=== PATIENT | female | born 1955 | race Caucasian/White ===

== ENCOUNTER 2018-09-11 10:47 | Emergency (ER) | payer OTHER, MEDICAID, SELFPAY ==
[2018-09-11 10:53] VITALS: BP 167/89; PULSE 57; RESP 14; TEMP 36.7; O2SAT 97
--- NOTE | 2018-09-11 10:57 | DI.RAD.S_ITS ---
PROCEDURE: XR FOOT LT MIN 3V INDICATIONS: pain on dorsal aspect, radiates to 1st toe. TECHNIQUE: 3 views of the foot were acquired. COMPARISON: None. FINDINGS: Bones: No fractures or dislocations. No suspicious bony lesions. Soft tissues: No tibiotalar joint effusion. Achilles tendon appears normal. IMPRESSION: Normal for age, source of current foot pain symptoms is not seen. Dictated by: Stone Ulrich M.D. on 09/11/2018 at 11:20 Approved by: Stone Ulrich M.D. on 09/11/2018 at 11:20
--- NOTE | 2018-09-11 13:05 | ED.LOWEXIN ---
HPI - Extremity Injury (Lower) <ANGÉLICA Darnell Last Filed: 09/11/18 20:35> General Chief Complaint: Extremity Injury, Lower Stated Complaint: Lt foot may be broken Time Seen by Provider: 09/11/18 13:12 Source: patient Mode of arrival: ambulatory Limitations: no limitations History of Present Illness HPI Narrative: This 63-year-old female comes to ED secondary to twisting injury to the left foot 3 days ago. She states that she got her foot stuck in a box with large cans in it, and then rolled it awkwardly forward into the side. She states it hurts in the inside of the foot. She is able to walk on the outside of the foot with some tenderness, having difficulty driving her stick shift. She had increased pain with walking this morning despite no new trauma and thought she should have an x-ray. She denies any injury to the ankle or any other new pain. She did not actually fall. She has been taking Tylenol for pain which is helpful. Related Data Home Medications Medication Instructions Recorded Confirmed lisinopril 2.5 mg tablet 2.5 mg PO DAILY 07/09/17 01/20/18 metoprolol succinate ER 100 mg 100 mg PO DAILY 01/20/18 01/20/18 capsule sprinkle, ext. release 24 hr amiodarone 100 mg tablet 50 mg PO DAILY tab 08/11/18 08/11/18 Previous Rx's Medication Instructions Recorded furosemide 20 mg tablet See Rx Instructions .ROUTE 08/04/18 .COMPLEX #60 tab bupropion HCl SR 200 mg tablet,12 200 mg PO DAILY #30 tab 08/13/18 hr sustained-release fluoxetine 20 mg capsule 40 mg PO QDAY #180 cap 08/13/18 alprazolam 0.5 mg tablet 0.5 mg PO BID #60 tab 08/18/18 warfarin 5 mg tablet See Rx Instructions .ROUTE 08/18/18 .COMPLEX #90 tab Allergies Allergy/AdvReac Type Severity Reaction Status Date / Time No Known Drug Allergies Allergy Verified 09/11/18 10:57 Review of Systems <ANGÉLICA Darnell Last Filed: 09/11/18 20:35> Review of Systems ROS Unobtainable: All systems reviewed & are unremarkable except as noted in HPI and below PFSH <ANGÉLICA Darnell Filed: 09/11/18 20:35> Medical History Anxiety (Chronic) Atrial fibrillation (Chronic) CHF (congestive heart failure) (Chronic) Depression (Chronic) Social History Smoking Status: Former smoker Social History Smoking Status: Former smoker Exam <Hortensia Deutsch PA-C - Last Filed: 09/11/18 20:35> Narrative Exam Narrative: GENERAL APPEARANCE: Patient sitting comfortably, in no distress. LUNGS: Clear to auscultation bilaterally. HEART: Rate and rhythm regular without murmur, normal S1 and S2, no S3 or S4. MUSCULOSKELETAL: No L. foot/ankle effusion. Tender over the left foot mid to distal mid medial metatarsals. No TTP elsewhere over the foot, no TTP over the L. ankle. Normal dorsi and plantarflexion of L. foot toes. Full AROM of L. ankle without tenderness. NEUROVASCULAR: L. foot warm and pink with brisk cap refill, sensation grossly intact Initial Vital Signs Initial Vital Signs: Vital Signs Temperature 98.1 F 09/11/18 10:53 Pulse Rate 57 L 09/11/18 10:53 Respiratory Rate 14 09/11/18 10:53 Blood Pressure 167/89 H 09/11/18 10:53 Pulse Oximetry 97 09/11/18 10:53 <Leanna Palmer DO - Last Filed: 09/12/18 07:12> Initial Vital Signs Initial Vital Signs: Vital Signs Temperature 98.1 F 09/11/18 10:53 Pulse Rate 57 L 09/11/18 10:53 Respiratory Rate 14 09/11/18 10:53 Blood Pressure 167/89 H 09/11/18 10:53 Pulse Oximetry 97 09/11/18 10:53 Course <Hortensia Deutsch PA-C - Last Filed: 09/11/18 20:35> Orders Ordered: ED Orders 09/11/18 10:57 XR foot LT min 3V Stat Vital Signs - 8 hr 09/11/18 13:36 Pulse Rate 67 Respiratory Rate 20 Blood Pressure [Left Arm] 111/64 Pulse Oximetry 95 <DO Misael Muro Last Filed: 09/12/18 07:12> Orders Ordered: ED Orders 09/11/18 10:57 XR foot LT min 3V Stat Vital Signs - 8 hr 09/11/18 13:36 Pulse Rate 67 Respiratory Rate 20 Blood Pressure [Left Arm] 111/64 Pulse Oximetry 95 MDM - Extremity Injury (Lower) <Hortensia Deutsch PA-C - Last Filed: 09/11/18 20:35> Imaging Data foot: Radiologist's impression: [address] [address] XRay Report Signed Patient: Miladis Bond [facility]#: [id number] : 4Acct:[id number] Age/Sex: 63 / FDate of Service: 09/11/18 Loc: ED Accession Number: [id number] Procedure: XR foot LT min 3V Ordering Provider: Leanna Palmer D.O. PROCEDURE: XR FOOT LT MIN 3V INDICATIONS: pain on dorsal aspect, radiates to 1st toe. TECHNIQUE: 3 views of the foot were acquired. COMPARISON: None. FINDINGS: Bones: No fractures or dislocations. No suspicious bony lesions. Soft tissues: No tibiotalar joint effusion. Achilles tendon appears normal. IMPRESSION: Normal for age, source of current foot pain symptoms is not seen. Dictated by: Stone Ulrich M.D. on 09/11/2018 at 11:20 Approved by: Stone Ulrich M.D. on 09/11/2018 at 11:20 Discharge Plan Departure Patient Disposition: Home Clinical Impression: Foot sprain Qualifiers: Encounter type: initial encounter Laterality: left Qualified Code(s): S93.602A - Unspecified sprain of left foot, initial encounter Discharge Date/Time: 09/11/18 13:42 Interventions: ED Discharge Assessment Last Done: 09/11/18 13:42 Instructions: DI for Foot Sprain Activity Restrictions/Additional Instructions: There was no broken bone seen on your xray today so it is likely that you bruised and sprained it. Please take Tylenol Arthritis or 8 hour (extended release acetaminophen, 650mg per tab) every 8 hours to help with pain (you can add a 4th tab during the day as needed in addition). This may be easier for you to keep up with than your regular usual tylenol. Wear the orthopedic shoe for support. Follow up with your PCP if this is not improving over the next week as you may need repeat xrays if this is not getting better (you may need to continue wearing the shoe for up to 4-6 weeks) Prescriptions: No Action lisinopril 2.5 mg tablet 2.5 mg PO DAILY RF: 0 metoprolol succinate 100 mg cap,sprinkle,ER 24hr dose pack 100 mg PO DAILY RF: 0 amiodarone 100 mg tablet 50 mg PO DAILY RF: 0 furosemide [Lasix] 20 mg tablet See Rx Instructions .ROUTE .COMPLEX Qty: 60 RF: 0 fluoxetine 20 mg capsule 40 mg PO QDAY Qty: 180 RF: 0 bupropion HCl 200 mg tablet sustained-release 12 hr 200 mg PO DAILY Qty: 30 RF: 6 warfarin [Coumadin] 5 mg tablet See Rx Instructions .ROUTE .COMPLEX Qty: 90 RF: 0 alprazolam [Xanax] 0.5 mg tablet 0.5 mg PO BID Qty: 60 RF: 0 Referrals: Giulia García DO [Primary Care Provider] - <Leanna Palmer DO - Last Filed: 09/12/18 07:12> Cosign ED Attending Cossylwiaature Attestation: I was immediately available in the department for consultation. Documentation has been reviewed. I agree with assessment and plan.
[2018-09-11 13:36] VITALS: BP 111/64; PULSE 67; RESP 20; O2SAT 95
== END 2018-09-11 13:42 | disposition home or self-care (01) ==
PROVIDERS: Emergency Provider Internal Medicine; Family Provider Family Medicine; PCP Family Medicine
DX: S93.602A Unspecified sprain of left foot, initial encounter (principal); X50.1XXA Overexertion from prolonged static or awkward postures, initial encounter
CPT/HCPCS: 73630; 99282; 99283

== ENCOUNTER → 2018-11-17 14:32 | Outpatient (CLI) | payer OTHER, MEDICAID, SELFPAY ==
[2018-11-17 15:19] LABS: Add Manual Diff / Slide Review NO; Basophils Absolute Auto 0 /uL (0-100); Basophils Percent Auto 0.5 % (0-2); Eosinophils Absolute Auto 100 /uL (0-450); Eosinophils Percent Auto 1.5 % (2-4); Hematocrit 45.8 % (36-46); Hemoglobin 15.6 g/dL (12.0-16.0); Lymphocytes Absolute Auto 2900 /uL (1100-4500); Mean Corpuscular HGB Conc 34.2 % (30-36); Mean Corpuscular Hemoglobin 30.7 PG (26-34); Mean Corpuscular Volume 89.7 fL (80-100); Monocytes Absolute Auto 800 /uL (0-900); Monocytes Percent Auto 8.8 % (3-14); Neutrophils Absolute Auto 5500 /uL (1500-7000); Neutrophils Percent Auto 58.2 % (50-75); Platelet Count 289 X10^3/uL (150-400); Red Cell Distribution Width 13.1 % (11.6-14.8); White Blood Cell Count 9.4 X10^3/uL (4.5-11.0)
[2018-11-17 15:52] LABS: INR 1.8 (0.9-1.3); Prothrombin Time 21.6 SECONDS (10.1-12.7)
[2018-11-17 16:04] LABS: Alanine Aminotransferase 36 IU/L (9-52); Albumin 4.7 g/dL (3.5-5.0); Albumin Globulin Ratio 1.3 (1.0-2.8); Alkaline Phosphatase 90 U/L (38-126); Aspartate Aminotransferase 35 IU/L (14-36); BUN Creatinine Ratio 18.9 (6-22); Bilirubin Total 0.5 mg/dL (0.2-1.3); Blood Urea Nitrogen 17 mg/dL (7-17); Calcium 10.4 mg/dL (8.4-10.2); Carbon Dioxide 30 mmol/L (22-32); Chloride 99 mmol/L (98-107); Cholesterol 136 mg/dL (140-199); Estimated Glomerular Filt Rate > 60.0 mL/min (>60); Globulin 3.5 g/dL (1.7-4.1); Glucose 116 mg/dL (80-110); HDL Cholesterol 44 mg/dL (40-60); HEMOLYSIS < 15 (0-50); LDL Cholesterol Calculated 59 mg/dL (<100); Potassium 4.4 mmol/L (3.4-5.1); Sodium 142 mmol/L (137-145); Total Protein 8.2 g/dL (6.3-8.2); Triglycerides 165 mg/dL (35-150)
[2018-11-17 16:33] LABS: Thyroid Stimulating Hormone < 0.02 uIU/mL (0.47-4.68)
== END ==
PROVIDERS: Family Provider Family Medicine; PCP Family Medicine; Visit Provider Internal Medicine Cardiovascular Disease
DX: Z51.81 Encounter for therapeutic drug level monitoring (principal); Z79.899 Other long term (current) drug therapy; Z79.01 Long term (current) use of anticoagulants; I48.1 Persistent atrial fibrillation; I10 Essential (primary) hypertension; I48.91 Unspecified atrial fibrillation
CPT/HCPCS: 36415; 80053; 80061; 84443; 85025; 85610

== ENCOUNTER 2018-11-20 11:16 | Emergency (ER) | payer OTHER, MEDICAID, SELFPAY ==
[2018-11-20] VITALS (15 sets, daily range): BP systolic 60–134; BP diastolic 18–91; PULSE 22–110; RESP 12–21; TEMP 36.7; O2SAT 95–98; BMI 34.4
--- NOTE | 2018-11-20 11:29 | DI.RAD.S_ITS ---
PROCEDURE: XR CHEST 1V INDICATIONS: chest pain TECHNIQUE: One view of the chest was acquired. COMPARISON: [facility], , CHEST 2 VIEW, 01/08/2015, 18:13. FINDINGS: Surgical changes and devices: None. Lungs and pleura: Lungs are clear. No pleural effusions or pneumothorax. Mediastinum: Mediastinal contours appear normal. Mild cardiomegaly. Bones and chest wall: No suspicious bony lesions. Overlying soft tissues appear unremarkable. IMPRESSION: Mild cardiomegaly. No evidence acute pulmonary process. Dictated by: Damien Pollack M.D. on 11/20/2018 at 12:08 Approved by: Damien Pollack M.D. on 11/20/2018 at 12:08
[2018-11-20 11:46] LABS: Add Manual Diff / Slide Review NO; Basophils Absolute Auto 0 /uL (0-100); Basophils Percent Auto 0.6 % (0-2); Eosinophils Absolute Auto 100 /uL (0-450); Eosinophils Percent Auto 1.5 % (2-4); Hematocrit 45.8 % (36-46); Hemoglobin 15.2 g/dL (12.0-16.0); Lymphocytes Absolute Auto 2200 /uL (1100-4500); Lymphocytes Percent Auto 29.3 % (25-40); Mean Corpuscular HGB Conc 33.1 % (30-36); Mean Corpuscular Hemoglobin 30.1 PG (26-34); Monocytes Absolute Auto 900 /uL (0-900); Monocytes Percent Auto 12.5 % (3-14); Neutrophils Absolute Auto 4100 /uL (1500-7000); Neutrophils Percent Auto 56.1 % (50-75); Platelet Count 271 X10^3/uL (150-400); Red Blood Cell Count 5.04 X10^6/uL (4.0-5.2); Red Cell Distribution Width 13.3 % (11.6-14.8); White Blood Cell Count 7.3 X10^3/uL (4.5-11.0)
[2018-11-20 11:52] LABS: INR 1.8 (0.9-1.3); Prothrombin Time 21.1 SECONDS (10.1-12.7)
[2018-11-20 11:55] LABS: PTT Partial Thromboplastin Tim 44 SECONDS (26.4-36.2)
[2018-11-20 11:57] LABS: Alanine Aminotransferase 30 IU/L (9-52); Albumin 4.3 g/dL (3.5-5.0); Albumin Globulin Ratio 1.3 (1.0-2.8); Alkaline Phosphatase 82 U/L (38-126); Aspartate Aminotransferase 31 IU/L (14-36); BUN Creatinine Ratio 32.5 (6-22); Bilirubin Total 0.5 mg/dL (0.2-1.3); Blood Urea Nitrogen 26 mg/dL (7-17); Calcium 9.3 mg/dL (8.4-10.2); Carbon Dioxide 27 mmol/L (22-32); Chloride 103 mmol/L (98-107); Creatine Kinase 46 U/L (30-135); Estimated Glomerular Filt Rate > 60.0 mL/min (>60); Globulin 3.3 g/dL (1.7-4.1); Glucose 128 mg/dL (80-110); HEMOLYSIS 18 (0-50); Lipase 55 U/L (23-300); Potassium 4.2 mmol/L (3.4-5.1); Sodium 140 mmol/L (137-145); Total Protein 7.6 g/dL (6.3-8.2)
[2018-11-20 12:08] LABS: Troponin I < 0.012 ng/mL (0.01-0.034)
[2018-11-20] MEDS: SODIUM CHLORIDE 0.9% 1,000 ML 1000 ML IV (12:23)
--- NOTE | 2018-11-20 12:39 | ED.SYNCOPE ---
HPI - Syncope General Chief Complaint: Syncope Stated Complaint: LOC Time Seen by Provider: 11/20/18 12:27 Source: patient Mode of arrival: ambulatory Limitations: no limitations History of Present Illness HPI narrative: 63-year-old female comes to the emergency department with complaint of dizziness, patient states she has been dizzy for about a week. She was noted to be in AFib with her burglar alarm installer and patient told to come and get her INR checked today. On the way to hospital to get her INR checked she had to tree puller twice because she felt dizzy like she might pass out. When she was getting it checked with the nurse via fingerstick she did pass out for several seconds. The patient states that she did feel it coming on but then could hear people talking when it happened. She denies any headache, no chest pain or shortness of breath. She has noted that she has been in AFib when she checks her blood pressure at home on her monitor. But she does not feel any palpitations. Patient denies any nausea no vomiting no issues with bowel movements or urination, no swelling in her lower extremities. She states that she numbness or symptoms when she is seated, if she is walking or lying flat she does not really notice them. She did have a cardioversion [address] kasandra Ruiz, they increased her metoprolol and doubled it early this week. They have also been slowly decreasing her amiodarone over the last couple months. Patient states that she is supposed to be converted Eliquis but is currently on Coumadin. She has had a cardioversion before but no other cardiac interventions and no other prior surgeries. She was told that her thyroid was very low the other day she quit smoking 8 months ago, occasionally smokes THC denies illicit. She is quite stressed and anxious as her is currently in hospice and she is the primary caregiver has not been eating or drinking much regularly and on the run constantly. Related Data Home Medications Medication Instructions Recorded Confirmed lisinopril 2.5 mg tablet 2.5 mg PO QPM 07/09/17 11/20/18 amiodarone 100 mg tablet 50 mg PO DAILY tab 08/11/18 11/20/18 alprazolam [Xanax] 0.5 mg PO BID PRN 11/20/18 11/20/18 fluoxetine 40 mg PO DAILY 11/20/18 11/20/18 furosemide [Lasix] 20 mg PO DAILY 11/20/18 11/20/18 metoprolol succinate 100 mg PO BID 11/20/18 11/20/18 warfarin [Coumadin] 5 mg PO TUSA 11/20/18 11/20/18 warfarin [Coumadin] 7.5 mg PO SUMOWETHFR 11/20/18 11/20/18 Previous Rx's Medication Instructions Recorded bupropion HCl 200 mg tablet,12 hr 200 mg PO DAILY #30 tab 08/13/18 sustained-release Allergies Allergy/AdvReac Type Severity Reaction Status Date / Time No Known Drug Allergies Allergy Verified 09/11/18 10:57 Review of Systems Review of Systems ROS Unobtainable: All systems reviewed & are unremarkable except as noted in HPI and below PFSH Medical History (Updated 11/20/18 @ 18:27 by Elizabeth Lino DO) Anxiety (Chronic) Atrial fibrillation (Chronic) CHF (congestive heart failure) (Chronic) Depression (Chronic) History of cardioversion (Acute) Social History (Updated 11/20/18 @ 12:56 by Elizabeth Lino DO) Smoking Status: Former smoker substance use type: does not use Social History (Updated 11/20/18 @ 12:56 by Elizabeth Lino DO) Smoking Status: Former smoker substance use type: does not use Exam Narrative Exam Narrative: GENERAL: Alert and oriented x three, obese female in no acute distress. HEENT: Head normocephalic, atraumatic, EOMI, pupils reactive, face symmetric, moist mucous membranes NECK: Supple, full range of motion CARDIOVASCULAR: Irregularly irregular rate and rhythm without murmurs, rubs or gallops. No JVD. No swelling in lower extremities. RESPIRATORY: Breath sounds equal bilaterally, no wheezes rales or rhonchi. ABDOMEN: Soft, nontender. Normoactive bowel sounds all 4 quadrants. No guarding or rebound, rigidity, no mass, no pulsatile mass. : No CVA tenderness EXTREMITIES: Normal range of motion, no clubbing or edema. Neurovascularly intact NEUROLOGICAL: Cranial nerves II through XII grossly intact. Moving all extremities SKIN: Warm, dry, no petechiae, no rashes or lesions. Initial Vital Signs Initial Vital Signs: Vital Signs Temperature 98.0 F 11/20/18 11:17 Pulse Rate 75 11/20/18 11:17 Respiratory Rate 18 11/20/18 11:17 Blood Pressure 130/84 11/20/18 11:17 Pulse Oximetry 95 11/20/18 11:17 Course Orders Ordered: ED Orders 11/20/18 11:29 XR chest 1V Stat EKG-12 Lead Stat 11/20/18 11:32 Complete Blood Count AUTO DIFF Stat Comprehensive Metabolic Panel Stat Free T4 Free Thyroxine Stat Lipase Stat Magnesium Stat Partial Thromboplastin Time Stat Prothrombin Time INR Stat Troponin & CK Cardiac Panel Stat 11/20/18 13:22 EKG-12 Lead Stat Sodium Chloride (Normal Saline 0.9%) 1,000 mls @ 200 mls/hr IV BOLUS ONE Stop: 11/20/18 18:32 Last Admin: 11/20/18 14:00 Dose: 200 mls/hr Documented by: LORENZO Discontinued Medications Sodium Chloride (Normal Saline 0.9%) 1,000 mls @ 1,000 mls/hr IV BOLUS ONE Stop: 11/20/18 13:07 Last Infusion: 11/20/18 13:33 Dose: 0 mls/hr Documented by: Admin: 11/20/18 12:23 Dose: 1,000 mls/hr Documented by: LORENZO Vital Signs Vital signs: Vital Signs - 8 hr 11/20/18 11:17 11/20/18 11:56 11/20/18 12:09 Temperature 98.0 F Pulse Rate 75 110 H Pulse Rate [Orthostatic Lying] 102 H Pulse Rate [Orthostatic Sitting] 108 H Pulse Rate [Orthostatic Standing] 91 H Respiratory Rate 18 20 Blood Pressure 130/84 Blood Pressure [Left Arm] 110/72 Blood Pressure [Orthostatic Lying] 119/51 L Blood Pressure [Orthostatic Sitting] 120/82 Blood Pressure [Orthostatic Standing] 92/52 L Pulse Oximetry 95 98 11/20/18 12:30 11/20/18 13:00 11/20/18 13:10 Temperature Pulse Rate 91 H 102 H 92 H Pulse Rate [Orthostatic Lying] Pulse Rate [Orthostatic Sitting] Pulse Rate [Orthostatic Standing] Respiratory Rate 15 15 18 Blood Pressure Blood Pressure [Left Arm] 102/62 102/71 102/71 Blood Pressure [Orthostatic Lying] Blood Pressure [Orthostatic Sitting] Blood Pressure [Orthostatic Standing] Pulse Oximetry 95 95 98 11/20/18 13:15 11/20/18 13:20 11/20/18 13:30 Temperature Pulse Rate 22 L 50 L 108 H Pulse Rate [Orthostatic Lying] Pulse Rate [Orthostatic Sitting] Pulse Rate [Orthostatic Standing] Respiratory Rate 12 18 14 Blood Pressure Blood Pressure [Left Arm] 60/18 L 98/45 L 129/70 Blood Pressure [Orthostatic Lying] Blood Pressure [Orthostatic Sitting] Blood Pressure [Orthostatic Standing] Pulse Oximetry 97 97 97 11/20/18 13:45 11/20/18 14:00 11/20/18 14:15 Temperature Pulse Rate 108 H 108 H 108 H Pulse Rate [Orthostatic Lying] Pulse Rate [Orthostatic Sitting] Pulse Rate [Orthostatic Standing] Respiratory Rate 14 18 18 Blood Pressure Blood Pressure [Left Arm] 128/91 H 123/85 122/52 L Blood Pressure [Orthostatic Lying] Blood Pressure [Orthostatic Sitting] Blood Pressure [Orthostatic Standing] Pulse Oximetry 11/20/18 16:02 Temperature Pulse Rate 98 H Pulse Rate [Orthostatic Lying] Pulse Rate [Orthostatic Sitting] Pulse Rate [Orthostatic Standing] Respiratory Rate 21 Blood Pressure Blood Pressure [Left Arm] 114/62 Blood Pressure [Orthostatic Lying] Blood Pressure [Orthostatic Sitting] Blood Pressure [Orthostatic Standing] Pulse Oximetry 98 MDM - Syncope Lab Data Attestation: I reviewed the patient's lab results. Result diagrams: 11/20/18 11:32 11/20/18 11:32 Labs: Lab Results 11/20/18 11/20/18 11/20/18 Range/Units 11:32 11:32 11:32 WBC 7.3 (4.5-11.0) X10^3/uL RBC 5.04 (4.0-5.2) X10^6/uL Hgb 15.2 (12.0-16.0) g/dL Hct 45.8 (36-46) % MCV 91.0 (80-100) fL MCH 30.1 (26-34) PG MCHC 33.1 (30-36) % RDW 13.3 (11.6-14.8) % Plt Count 271 (150-400) X10^3/uL Neut % (Auto) 56.1 (50-75) % Lymph % (Auto) 29.3 (25-40) % Starr % (Auto) 12.5 (3-14) % Eos % (Auto) 1.5 L (2-4) % Baso % (Auto) 0.6 (0-2) % Neut # (Auto) 4100 (0807-2184) /uL Lymph # (Auto) 2200 (7561-9029) /uL Starr # (Auto) 900 (0-900) /uL Eos # (Auto) 100 (0-450) /uL Baso # (Auto) 0 (0-100) /uL PT 21.1 H (10.1-12.7) SECONDS INR 1.8 H (0.9-1.3) APTT 44 H (26.4-36.2) SECONDS Sodium 140 (137-145) mmol/L Potassium 4.2 (3.4-5.1) mmol/L Chloride 103 (98-107) mmol/L Carbon Dioxide 27 (22-32) mmol/L BUN 26 H (7-17) mg/dL Creatinine 0.80 (0.52-1.04) mg/dL Estimated GFR > 60.0 (>60) mL/min BUN/Creatinine Ratio 32.5 H (6-22) Glucose 128 H (80-110) mg/dL Calcium 9.3 (8.4-10.2) mg/dL Magnesium (1.6-2.3) mg/dL Total Bilirubin 0.5 (0.2-1.3) mg/dL AST 31 (14-36) IU/L ALT 30 (9-52) IU/L Alkaline Phosphatase 82 (38-126) U/L Total Creatine Kinase 46 (30-135) U/L CK-MB (CK-2) TNP CK-MB (CK-2) Rel Index TNP Troponin I < 0.012 (0.01-0.034) ng/mL Total Protein 7.6 (6.3-8.2) g/dL Albumin 4.3 (3.5-5.0) g/dL Globulin 3.3 (1.7-4.1) g/dL Albumin/Globulin Ratio 1.3 (1.0-2.8) Lipase 55 (23-300) U/L Free T4 (0.78-2.19) ng/dL 11/20/18 11/20/18 Range/Units 11:32 11:32 WBC (4.5-11.0) X10^3/uL RBC (4.0-5.2) X10^6/uL Hgb (12.0-16.0) g/dL Hct (36-46) % MCV (80-100) fL MCH (26-34) PG MCHC (30-36) % RDW (11.6-14.8) % Plt Count (150-400) X10^3/uL Neut % (Auto) (50-75) % Lymph % (Auto) (25-40) % Starr % (Auto) (3-14) % Eos % (Auto) (2-4) % Baso % (Auto) (0-2) % Neut # (Auto) (5726-6457) /uL Lymph # (Auto) (3476-3085) /uL Starr # (Auto) (0-900) /uL Eos # (Auto) (0-450) /uL Baso # (Auto) (0-100) /uL PT (10.1-12.7) SECONDS INR (0.9-1.3) APTT (26.4-36.2) SECONDS Sodium (137-145) mmol/L Potassium (3.4-5.1) mmol/L Chloride (98-107) mmol/L Carbon Dioxide (22-32) mmol/L BUN (7-17) mg/dL Creatinine (0.52-1.04) mg/dL Estimated GFR (>60) mL/min BUN/Creatinine Ratio (6-22) Glucose (80-110) mg/dL Calcium (8.4-10.2) mg/dL Magnesium 2.0 (1.6-2.3) mg/dL Total Bilirubin (0.2-1.3) mg/dL AST (14-36) IU/L ALT (9-52) IU/L Alkaline Phosphatase (38-126) U/L Total Creatine Kinase (30-135) U/L CK-MB (CK-2) CK-MB (CK-2) Rel Index Troponin I (0.01-0.034) ng/mL Total Protein (6.3-8.2) g/dL Albumin (3.5-5.0) g/dL Globulin (1.7-4.1) g/dL Albumin/Globulin Ratio (1.0-2.8) Lipase (23-300) U/L Free T4 4.07 H (0.78-2.19) ng/dL Urine Dip Bedside Urine Glucose Negative Bedside Urine Bilirubin - Negative Bedside Urine Ketone - Negative Urine Specific [place] 1.010 Bedside Urine Occult Blood - Negative Bedside Urine pH 7.0 Bedside Urine Protein - Negative Bedside Urine Urobilinogen - Negative Bedside Urine Nitrite - Negative Bedside Urine Leukocytes - Negative Esterase Imaging Data Chest x-ray: Radiologist's impression: [address] [address] XRay Report Signed Patient: Miladis Bond [facility]#: [id number] : 4Acct:[id number] Age/Sex: 63 / FDate of Service: 11/20/18 Loc: ED Accession Number: [id number] Procedure: XR chest 1V Ordering Provider: Elizabeth Lino D.O. PROCEDURE: XR CHEST 1V INDICATIONS: chest pain TECHNIQUE: One view of the chest was acquired. COMPARISON: [facility], , CHEST 2 VIEW, 01/08/2015, 18:13. FINDINGS: Surgical changes and devices: None. Lungs and pleura: Lungs are clear. No pleural effusions or pneumothorax. Mediastinum: Mediastinal contours appear normal. Mild cardiomegaly. Bones and chest wall: No suspicious bony lesions. Overlying soft tissues appear unremarkable. IMPRESSION: Mild cardiomegaly. No evidence acute pulmonary process. Dictated by: Damien Pollack M.D. on 11/20/2018 at 12:08 Approved by: Damien Pollack M.D. on 11/20/2018 at 12:08 ECG Data Attestation: I personally reviewed and interpreted this ECG as follows: Prior ECG tracings: available for review Interpretation: AFib with a rate of 74 QRS of 157 QTC of 402. Patient has right bundle-branch block and left and posterior fascicular block. 01/08/2015 and 01/13/2015, patient had AFib on prior, has RSR which is noted on some but not all of her leads on prior EKG. On telemetry patient has had multiple multi 2nd pauses some as long as 5 seconds. MDM Narrative Medical decision making narrative: Patient comes in with dizziness and a syncopal episode. Patient did have positive orthostatics he in AFib with rapid ventricular response that ranges from 120 to 70. Patient states her metoprolol was increased and doubled on Friday with her burglar alarm installer Dr. Tamayo. She does continue to take Amiodarone 50mg daily but they have been slowly titrating her amiodarone down. Labs show sub therapeutic INR at 1.8, CBC is normal, CMP shows elevated BUN but no renal dysfunction, normal electrolytes, troponin is negative with normal CK. It is noted that TSH on 11/17/2018 was less than 0.02 any free T4 was added on which is also elevated. I spoke with Dr. Tamayo, who consulted with Dr. Jacobsen, they would like patient to come to [facility] for possible pacemaker placement. They asked that we hold metoprolol. I spoke with Dr. Trejo the hospitalist who accepts for transfer. Patient transfer delayed as EMS transport is delayed. Patient has had some dizziness during her prolonged pauses but otherwise has not had any syncope in the department. And has otherwise done well. She is aware and comfortable with the plan. Discharge Plan Departure [facility] Clinical Impression: Atrial fibrillation, Cardiac dysrhythmia Prescriptions: No Action lisinopril 2.5 mg tablet 2.5 mg PO QPM RF: 0 amiodarone 100 mg tablet 50 mg PO DAILY RF: 0 bupropion HCl 200 mg tablet sustained-release 12 hr 200 mg PO DAILY Qty: 30 RF: 6 metoprolol succinate 200 mg Tablet Extended Release 24 Hr 100 mg PO BID RF: 0 warfarin [Coumadin] 5 mg Tablet 7.5 mg PO SUMOWETHFR RF: 0 alprazolam [Xanax] 0.5 mg tablet 0.5 mg PO BID PRN (Reason: Anxiety) RF: 0 warfarin [Coumadin] 5 mg tablet 5 mg PO TUSA RF: 0 furosemide [Lasix] 20 mg tablet 20 mg PO DAILY RF: 0 fluoxetine 20 mg capsule 40 mg PO DAILY RF: 0 Referrals: Giulia García DO [Primary Care Provider] -
[2018-11-20 13:24] LABS: Free T4, Direct Thyroxine 4.07 ng/dL (0.78-2.19)
[2018-11-20] MEDS: SODIUM CHLORIDE 0.9% 1,000 ML 200 ML IV (14:00)
--- NOTE | 2018-11-20 14:20 | PC.NURSE ---
@ 1315 pt had ECG pause w/ HR dropping < 20, stated she felt dizzy, noted hypotension. Self resolved. Pt continued to have pauses w/ dizzyness and drop in HR, all self resolved. Provider aware. 2nd IV placed, pace pads placed w/ defib @ bedside. Each episode is associated w/ dizzyness. States she would most likely pass out if she were standing up. Denies chest pain / shortness of breath. Cardiology has been consulted and plan is to go to [facility] for possible pacemaker.
== END 2018-11-20 19:37 | disposition short-term general hospital (02) ==
PROVIDERS: Emergency Provider Emergency Medicine; Family Provider Family Medicine; PCP Family Medicine
DX: I48.91 Unspecified atrial fibrillation (principal); Z79.01 Long term (current) use of anticoagulants; I49.9 Cardiac arrhythmia, unspecified
CPT/HCPCS: 36591; 71045; 80053; 81003; 82550; 83690; 83735; 84439; 84484; 85025; 85610; 85730; 93005; 93010; 96360; 96361; 99285

== ENCOUNTER 2018-12-14 11:47 | Observation (INO) | payer OTHER, MEDICAID, SELFPAY ==
[2018-12-14] VITALS (11 sets, daily range): BP systolic 100–135; BP diastolic 47–101; PULSE 67–77; RESP 14–19; TEMP 36.4–37.2; O2SAT 95–99; BMI 33.5
--- NOTE | 2018-12-14 12:09 | DI.RAD.S_ITS ---
PROCEDURE: XR CHEST 2V INDICATIONS: shortness of breath TECHNIQUE: 2 views of the chest were acquired. COMPARISON: [facility], , XR CHEST 1V, 11/20/2018, 11:59. FINDINGS: Surgical changes and devices: Dual-lead cardiac pacer Lungs and pleura: Lungs are clear. No pleural effusions or pneumothorax. Mediastinum: Mediastinal contours are normal. Heart size is normal. Bones and chest wall: No suspicious bony abnormalities. Soft tissues appear unremarkable. IMPRESSION: No acute disease Dictated by: Rodolfo Schmidt M.D. on 12/14/2018 at 12:51 Approved by: Rodolfo Schmidt M.D. on 12/14/2018 at 13:01
[2018-12-14 12:32] LABS: Add Manual Diff / Slide Review NO; Basophils Absolute Auto 0 /uL (0-100); Basophils Percent Auto 0.4 % (0-2); Eosinophils Absolute Auto 100 /uL (0-450); Eosinophils Percent Auto 1.9 % (2-4); Hematocrit 39.6 % (36-46); Hemoglobin 13.2 g/dL (12.0-16.0); Lymphocytes Absolute Auto 2100 /uL (1100-4500); Lymphocytes Percent Auto 28.1 % (25-40); Mean Corpuscular HGB Conc 33.5 % (30-36); Mean Corpuscular Hemoglobin 30.2 PG (26-34); Mean Corpuscular Volume 90.4 fL (80-100); Monocytes Absolute Auto 900 /uL (0-900); Monocytes Percent Auto 11.8 % (3-14); Neutrophils Absolute Auto 4400 /uL (1500-7000); Neutrophils Percent Auto 57.8 % (50-75); Platelet Count 211 X10^3/uL (150-400); Red Blood Cell Count 4.38 X10^6/uL (4.0-5.2); Red Cell Distribution Width 12.7 % (11.6-14.8); White Blood Cell Count 7.6 X10^3/uL (4.5-11.0)
[2018-12-14 12:38] LABS: B Type Natriuretic Peptide 105 (<100)
[2018-12-14 12:39] LABS: Alanine Aminotransferase 34 IU/L (9-52); Albumin 4.1 g/dL (3.5-5.0); Albumin Globulin Ratio 1.2 (1.0-2.8); Alkaline Phosphatase 61 U/L (38-126); Aspartate Aminotransferase 36 IU/L (14-36); Bilirubin Total 0.7 mg/dL (0.2-1.3); Blood Urea Nitrogen 21 mg/dL (7-17); Calcium 9.7 mg/dL (8.4-10.2); Carbon Dioxide 26 mmol/L (22-32); Chloride 103 mmol/L (98-107); Estimated Glomerular Filt Rate > 60.0 mL/min (>60); Globulin 3.3 g/dL (1.7-4.1); Glucose 105 mg/dL (80-110); HEMOLYSIS < 15 (0-50); Potassium 3.8 mmol/L (3.4-5.1); Sodium 139 mmol/L (137-145); Total Protein 7.4 g/dL (6.3-8.2)
--- NOTE | 2018-12-14 12:44 | ED.SOB ---
HPI - SOB/Dyspnea <CJ Vargas - Last Filed: 12/14/18 20:25> General Chief Complaint: Shortness of Breath/Dyspnea Stated Complaint: SOB Time Seen by Provider: 12/14/18 12:07 Source: patient Mode of arrival: Wheelchair Limitations: no limitations History of Present Illness HPI Narrative: The patient is a 63-year-old female former smoker with history of atrial fibrillation on apixaban who presents for chief complaint of shortness of breath with ambulation. She had a pacemaker placed approximately 3 weeks ago for AFib and states that she has had worsening shortness of breath over the past 2-3 weeks. She states this only occurs with ambulation and she feels fine at rest. No chest pain. No fevers. No nausea vomiting or diarrhea. Patient states that she feels overall well. She was sent today from her primary care provider is april, Dr. García. She denies any falls or trauma. She does state that she has a history of heart failure, has been referred to an pipefitter for thyroid issues, hypertension. Related Data Home Medications Medication Instructions Recorded Confirmed lisinopril 2.5 mg tablet 2.5 mg PO QPM 07/09/17 12/14/18 alprazolam [Xanax] 0.5 mg PO BID PRN 11/20/18 12/14/18 fluoxetine 20 mg PO DAILY 11/20/18 12/14/18 furosemide [Lasix] 20 mg PO DAILY 11/20/18 12/14/18 apixaban 5 mg tablet 5 mg PO BID 12/14/18 12/14/18 metoprolol succinate 100 mg 150 mg PO BID 12/14/18 12/14/18 tablet,extended release 24 hr Previous Rx's Medication Instructions Recorded bupropion HCl 200 mg tablet,12 hr 200 mg PO DAILY #30 tab 08/13/18 sustained-release methimazole 10 mg PO DAILY 60 Days #30 tab 12/16/18 methimazole 10 mg PO DAILY 60 Days #30 tab 12/16/18 prednisone See Rx Instructions .ROUTE 12/16/18 .COMPLEX 35 Days #90 tab Allergies Allergy/AdvReac Type Severity Reaction Status Date / Time No Known Drug Allergies Allergy Verified 12/14/18 11:09 Review of Systems <CJ Vargas - Last Filed: 12/14/18 20:25> Review of Systems Narrative: GENERAL: Denies chills, fatigue, malaise, fever, sweats. HEENT: Denies sinus pain, ear pain, sore throat, difficulty swallowing, dizziness. RESPIRATORY: See HPI CARDIOVASCULAR: See HPI GASTROINTESTINAL: Denies nausea, vomiting, abdominal pain, diarrhea, constipation, melena. : Denies dysuria, frequency, incontinence, hematuria, urinary retention. MUSCULOSKELETAL: denies weakness, joint pain, or bony pain SKIN: Denies rash, skin lesions, or other NEUROLOGIC: Denies weakness, headache, numbness, change in speech, confusion, seizures, incoordination. PSYCHIATRIC: No concerning psychosocial issues. 12 point review of systems is negative except for those stated above PFSH <CJ Vargas - Last Filed: 12/14/18 20:25> Medical History (Updated 12/15/18 @ 03:06 by FAHEEM Gr) Anxiety and depression (Acute) Atrial fibrillation (Chronic) CHF (congestive heart failure) (Chronic) Chronic anticoagulation (Chronic) History of tobacco use disorder (Acute) Hx of amiodarone therapy (Acute) Hypertension (Acute) Marijuana use (Acute) Sick sinus syndrome (Acute) Surgical History (Updated 12/15/18 @ 02:58 by FAHEEM Gr) History of cardioversion (Chronic 05/2015) S/P placement of cardiac pacemaker (Acute 11/20/18) Family History Mother Atrial fibrillation Peptic ulcer disease GIB (gastrointestinal bleeding) Father Valvular heart disease Stomach cancer Sister Atrial fibrillation Social History household members: spouse and family Smoking Status: Former smoker alcohol intake: never substance use type: does not use Family History Mother Atrial fibrillation Peptic ulcer disease GIB (gastrointestinal bleeding) Father Valvular heart disease Stomach cancer Sister Atrial fibrillation Social History household members: spouse and family Smoking Status: Former smoker alcohol intake: never substance use type: does not use Exam <SHARONA Vargas-BC - Last Filed: 12/14/18 20:25> Narrative Exam Narrative: GENERAL: This is a well-nourished, well-developed patient, no acute distress HEAD: Atraumatic. Normocephalic. No temporal or scalp tenderness. EYES: Pupils equal round and reactive. Extraocular motions intact. No scleral icterus. No injection or drainage. ENT: Nose without bleeding, purulent drainage or septal hematoma. Throat without erythema, tonsillar hypertrophy or exudate. Uvula midline. Airway patent. NECK: Trachea midline. No JVD or lymphadenopathy. Supple, nontender, no meningeal signs. CARDIOVASCULAR: Regular rate and rhythm without murmurs, gallops, or rubs. RESPIRATORY: Clear to auscultation. Breath sounds equal bilaterally. No wheezes, rales, or rhonchi. No cough. No increased respiratory effort. No accessory muscle use. GASTROINTESTINAL: Abdomen soft, non-tender, nondistended. No hepato-splenomegaly, or palpable masses. No guarding. EXTREMITIES: No clubbing, cyanosis bilaterally. No joint tenderness, effusion, or edema noted. 1+ pedal edema noted. BACK: Nontender without deformity or crepitance. No flank tenderness. NEURO: AOx3. SKIN: No rash or erythema. Initial Vital Signs Initial Vital Signs: Vital Signs Temperature 97.8 F 12/14/18 11:57 Pulse Rate 70 12/14/18 11:57 Respiratory Rate 14 12/14/18 11:57 Blood Pressure 109/78 12/14/18 11:57 Pulse Oximetry 96 12/14/18 11:57 <Elizabeth Lino DO - Last Filed: 12/16/18 18:05> Initial Vital Signs Initial Vital Signs: Vital Signs Temperature 97.8 F 12/14/18 11:57 Pulse Rate 70 12/14/18 11:57 Respiratory Rate 14 12/14/18 11:57 Blood Pressure 109/78 12/14/18 11:57 Pulse Oximetry 96 12/14/18 11:57 Scores <SMITH VargasBC - Last Filed: 12/14/18 20:25> HEART Score Heart Score history: Slightly Suspicious Heart Score EKG: Normal Heart Score Age: 45-64 years old Heart Score risk factors: > 3 risk factors or hx of atherosclerotic disease Heart Score troponin: < or = to normal limit Heart Score Total: 3 PERC Score Age greater than or equal to 50 years: Yes Heart rate greater than or equal to 100 bpm: No Room Air O2 Sat less than 95%: No Unilateral leg swelling: No Recent trauma or surgery: Yes Hemoptysis: No Prior PE or DVT: No Hormone Use: No Total PERC Score: 2 Wells' Criteria for PE Clinical signs and symptoms of DVT: No PE is #1 Dx or equally likely: No Heart rate > 100: No Immobilization at least 3 days or surg in previous 4 weeks: Yes History of PE or DVT: No Hemoptysis: No Malignancy w/Treatment within 6 months or palliative: No Wells' PE Score total: 1.5 Course <SHARONA Vargas- - Last Filed: 12/14/18 20:25> Orders Ordered: Discontinued Medications Acetaminophen (Tylenol) 650 mg PO Q6HR PRN PRN Reason: As Needed for Fever/Mild Pain Alprazolam (Xanax) 0.5 mg PO BID PRN PRN Reason: Anxiety Last Admin: 12/15/18 15:16 Dose: 0.5 mg Documented by: SILVINA Apixaban (Eliquis) 5 mg PO BID [facility] Last Admin: 12/16/18 08:57 Dose: 5 mg Documented by: Admin: 12/15/18 20:57 Dose: 5 mg Documented by: Admin: 12/15/18 10:14 Dose: 5 mg Documented by: Admin: 12/14/18 22:35 Dose: 5 mg Documented by: PRASANNA Bisacodyl (Dulcolax) 10 mg [place] DAILY PRN PRN Reason: Constipation Bupropion HCl (Wellbutrin Sr) 200 mg PO DAILY [facility] Last Admin: 12/16/18 08:57 Dose: 200 mg Documented by: Admin: 12/15/18 10:14 Dose: 200 mg Documented by: SILVINA Furosemide (Lasix) 20 mg PO DAILY [facility] Last Admin: 12/16/18 08:57 Dose: 20 mg Documented by: Admin: 12/15/18 10:14 Dose: 20 mg Documented by: SILVINA Lisinopril (Zestril) 2.5 mg PO QPM [facility] Last Admin: 12/15/18 17:03 Dose: 2.5 mg Documented by: RUBIN Methimazole (Methimazole) 10 mg PO DAILY [facility] Last Admin: 12/16/18 08:54 Dose: 10 mg Documented by: Admin: 12/15/18 14:36 Dose: 10 mg Documented by: SILVINA Metoprolol Succinate (Toprol Xl) 150 mg PO BID [facility] Last Admin: 12/16/18 00:27 Dose: 150 mg Documented by: Admin: 12/15/18 21:25 Dose: Not Given Documented by: Admin: 12/15/18 07:44 Dose: 150 mg Documented by: Admin: 12/14/18 22:35 Dose: Not Given Documented by: PRASANNA Metoprolol Tartrate (Lopressor) 5 mg IV NOW ONE Stop: 12/15/18 00:08 Last Admin: 12/15/18 00:19 Dose: 5 mg Documented by: SHARAN Ondansetron HCl (Zofran) 4 mg IV Q8HR PRN PRN Reason: Nausea And Vomiting Prednisone (Deltasone) 40 mg PO NOW ONE Stop: 12/15/18 13:29 Last Admin: 12/15/18 14:36 Dose: 40 mg Documented by: SILVINA Prednisone (Deltasone) 40 mg PO DAILY [facility] Last Admin: 12/16/18 08:55 Dose: 40 mg Documented by: TEZ Sodium Chloride (Normal Saline 0.9% Flush) 10 ml IV BID [facility] Last Admin: 12/16/18 08:58 Dose: 10 ml Documented by: Admin: 12/15/18 20:22 Dose: 10 ml Documented by: Admin: 12/15/18 10:15 Dose: 10 ml Documented by: Admin: 12/14/18 21:09 Dose: 10 ml Documented by: PRASANNA Sodium Chloride (Normal Saline 0.9% Flush) 10 ml IV PRN PRN PRN Reason: Flush Last Admin: 12/15/18 00:19 Dose: 10 ml Documented by: SHARAN Vital Signs Vital signs: Vital Signs - 8 hr 12/14/18 12:39 12/14/18 14:30 12/14/18 15:30 Pulse Rate 77 69 70 Respiratory Rate 19 14 14 Blood Pressure [Right Arm] 135/101 H 112/53 L 104/49 L Pulse Oximetry 96 99 97 <Elizabeth Lino, DO - Last Filed: 12/16/18 18:05> Orders Ordered: Discontinued Medications Acetaminophen (Tylenol) 650 mg PO Q6HR PRN PRN Reason: As Needed for Fever/Mild Pain Alprazolam (Xanax) 0.5 mg PO BID PRN PRN Reason: Anxiety Last Admin: 12/15/18 15:16 Dose: 0.5 mg Documented by: SILVINA Apixaban (Eliquis) 5 mg PO BID [facility] Last Admin: 12/16/18 08:57 Dose: 5 mg Documented by: Admin: 12/15/18 20:57 Dose: 5 mg Documented by: Admin: 12/15/18 10:14 Dose: 5 mg Documented by: Admin: 12/14/18 22:35 Dose: 5 mg Documented by: PRASANNA Bisacodyl (Dulcolax) 10 mg [place] DAILY PRN PRN Reason: Constipation Bupropion HCl (Wellbutrin Sr) 200 mg PO DAILY [facility] Last Admin: 12/16/18 08:57 Dose: 200 mg Documented by: Admin: 12/15/18 10:14 Dose: 200 mg Documented by: SILVINA Furosemide (Lasix) 20 mg PO DAILY [facility] Last Admin: 12/16/18 08:57 Dose: 20 mg Documented by: Admin: 12/15/18 10:14 Dose: 20 mg Documented by: SILVINA Lisinopril (Zestril) 2.5 mg PO QPM [facility] Last Admin: 12/15/18 17:03 Dose: 2.5 mg Documented by: RUBIN Methimazole (Methimazole) 10 mg PO DAILY [facility] Last Admin: 12/16/18 08:54 Dose: 10 mg Documented by: Admin: 12/15/18 14:36 Dose: 10 mg Documented by: SILVINA Metoprolol Succinate (Toprol Xl) 150 mg PO BID [facility] Last Admin: 12/16/18 00:27 Dose: 150 mg Documented by: Admin: 12/15/18 21:25 Dose: Not Given Documented by: Admin: 12/15/18 07:44 Dose: 150 mg Documented by: Admin: 12/14/18 22:35 Dose: Not Given Documented by: PRASANNA Metoprolol Tartrate (Lopressor) 5 mg IV NOW ONE Stop: 12/15/18 00:08 Last Admin: 12/15/18 00:19 Dose: 5 mg Documented by: SHARAN Ondansetron HCl (Zofran) 4 mg IV Q8HR PRN PRN Reason: Nausea And Vomiting Prednisone (Deltasone) 40 mg PO NOW ONE Stop: 12/15/18 13:29 Last Admin: 12/15/18 14:36 Dose: 40 mg Documented by: SILVINA Prednisone (Deltasone) 40 mg PO DAILY [facility] Last Admin: 12/16/18 08:55 Dose: 40 mg Documented by: TEZ Sodium Chloride (Normal Saline 0.9% Flush) 10 ml IV BID [facility] Last Admin: 12/16/18 08:58 Dose: 10 ml Documented by: Admin: 12/15/18 20:22 Dose: 10 ml Documented by: Admin: 12/15/18 10:15 Dose: 10 ml Documented by: Admin: 12/14/18 21:09 Dose: 10 ml Documented by: PRASANNA Sodium Chloride (Normal Saline 0.9% Flush) 10 ml IV PRN PRN PRN Reason: Flush Last Admin: 12/15/18 00:19 Dose: 10 ml Documented by: SHARAN Vital Signs Vital signs: Vital Signs - 8 hr 12/14/18 12:39 12/14/18 14:30 12/14/18 15:30 Pulse Rate 77 69 70 Respiratory Rate 19 14 14 Blood Pressure [Right Arm] 135/101 H 112/53 L 104/49 L Pulse Oximetry 96 99 97 MDM - SOB/Dyspnea <CJ Vargas - Last Filed: 12/14/18 20:25> Lab Data Result diagrams: 12/14/18 12:07 12/14/18 12:07 Labs: Lab Results 12/14/18 12/14/18 12/14/18 Range/Units 12:07 12:07 12:07 WBC 7.6 (4.5-11.0) X10^3/uL RBC 4.38 (4.0-5.2) X10^6/uL Hgb 13.2 (12.0-16.0) g/dL Hct 39.6 (36-46) % MCV 90.4 (80-100) fL MCH 30.2 (26-34) PG MCHC 33.5 (30-36) % RDW 12.7 (11.6-14.8) % Plt Count 211 (150-400) X10^3/uL Neut % (Auto) 57.8 (50-75) % Lymph % (Auto) 28.1 (25-40) % [place] % (Auto) 11.8 (3-14) % Eos % (Auto) 1.9 L (2-4) % Baso % (Auto) 0.4 (0-2) % Neut # (Auto) 4400 (3113-8104) /uL Lymph # (Auto) 2100 (3876-3662) /uL [place] # (Auto) 900 (0-900) /uL Eos # (Auto) 100 (0-450) /uL Baso # (Auto) 0 (0-100) /uL PT (10.1-12.7) SECONDS INR (0.9-1.3) APTT (26.4-36.2) SECONDS Sodium 139 (137-145) mmol/L Potassium 3.8 (3.4-5.1) mmol/L Chloride 103 (98-107) mmol/L Carbon Dioxide 26 (22-32) mmol/L BUN 21 H (7-17) mg/dL Creatinine 0.70 (0.52-1.04) mg/dL Estimated GFR > 60.0 (>60) mL/min BUN/Creatinine Ratio 30.0 H (6-22) Glucose 105 (80-110) mg/dL Calcium 9.7 (8.4-10.2) mg/dL Magnesium (1.6-2.3) mg/dL Total Bilirubin 0.7 (0.2-1.3) mg/dL AST 36 (14-36) IU/L ALT 34 (9-52) IU/L Alkaline Phosphatase 61 (38-126) U/L Total Creatine Kinase 42 (30-135) U/L CK-MB (CK-2) TNP CK-MB (CK-2) Rel Index TNP Troponin I < 0.012 (0.01-0.034) ng/mL B-Natriuretic Peptide (<100) Total Protein 7.4 (6.3-8.2) g/dL Albumin 4.1 (3.5-5.0) g/dL Globulin 3.3 (1.7-4.1) g/dL Albumin/Globulin Ratio 1.2 (1.0-2.8) TSH (0.47-4.68) uIU/mL Free T4 (0.78-2.19) ng/dL Free T3 (2.77-5.27) pg/mL 12/14/18 12/14/18 12/14/18 Range/Units 12:07 12:07 12:07 WBC (4.5-11.0) X10^3/uL RBC (4.0-5.2) X10^6/uL Hgb (12.0-16.0) g/dL Hct (36-46) % MCV (80-100) fL MCH (26-34) PG MCHC (30-36) % RDW (11.6-14.8) % Plt Count (150-400) X10^3/uL Neut % (Auto) (50-75) % Lymph % (Auto) (25-40) % [place] % (Auto) (3-14) % Eos % (Auto) (2-4) % Baso % (Auto) (0-2) % Neut # (Auto) (8721-4217) /uL Lymph # (Auto) (4223-1351) /uL [place] # (Auto) (0-900) /uL Eos # (Auto) (0-450) /uL Baso # (Auto) (0-100) /uL PT 16.6 H (10.1-12.7) SECONDS INR 1.4 H (0.9-1.3) APTT 37 H D (26.4-36.2) SECONDS Sodium (137-145) mmol/L Potassium (3.4-5.1) mmol/L Chloride (98-107) mmol/L Carbon Dioxide (22-32) mmol/L BUN (7-17) mg/dL Creatinine (0.52-1.04) mg/dL Estimated GFR (>60) mL/min BUN/Creatinine Ratio (6-22) Glucose (80-110) mg/dL Calcium (8.4-10.2) mg/dL Magnesium (1.6-2.3) mg/dL Total Bilirubin (0.2-1.3) mg/dL AST (14-36) IU/L ALT (9-52) IU/L Alkaline Phosphatase (38-126) U/L Total Creatine Kinase (30-135) U/L CK-MB (CK-2) CK-MB (CK-2) Rel Index Troponin I (0.01-0.034) ng/mL B-Natriuretic Peptide 105 H (<100) Total Protein (6.3-8.2) g/dL Albumin (3.5-5.0) g/dL Globulin (1.7-4.1) g/dL Albumin/Globulin Ratio (1.0-2.8) TSH < 0.02 L (0.47-4.68) uIU/mL Free T4 (0.78-2.19) ng/dL Free T3 (2.77-5.27) pg/mL 12/14/18 12/14/18 12/14/18 Range/Units 12:07 12:07 12:07 WBC (4.5-11.0) X10^3/uL RBC (4.0-5.2) X10^6/uL Hgb (12.0-16.0) g/dL Hct (36-46) % MCV (80-100) fL MCH (26-34) PG MCHC (30-36) % RDW (11.6-14.8) % Plt Count (150-400) X10^3/uL Neut % (Auto) (50-75) % Lymph % (Auto) (25-40) % [place] % (Auto) (3-14) % Eos % (Auto) (2-4) % Baso % (Auto) (0-2) % Neut # (Auto) (4283-3642) /uL Lymph # (Auto) (1266-8645) /uL [place] # (Auto) (0-900) /uL Eos # (Auto) (0-450) /uL Baso # (Auto) (0-100) /uL PT (10.1-12.7) SECONDS INR (0.9-1.3) APTT (26.4-36.2) SECONDS Sodium (137-145) mmol/L Potassium (3.4-5.1) mmol/L Chloride (98-107) mmol/L Carbon Dioxide (22-32) mmol/L BUN (7-17) mg/dL Creatinine (0.52-1.04) mg/dL Estimated GFR (>60) mL/min BUN/Creatinine Ratio (6-22) Glucose (80-110) mg/dL Calcium (8.4-10.2) mg/dL Magnesium 1.8 (1.6-2.3) mg/dL Total Bilirubin (0.2-1.3) mg/dL AST (14-36) IU/L ALT (9-52) IU/L Alkaline Phosphatase (38-126) U/L Total Creatine Kinase (30-135) U/L CK-MB (CK-2) CK-MB (CK-2) Rel Index Troponin I (0.01-0.034) ng/mL B-Natriuretic Peptide (<100) Total Protein (6.3-8.2) g/dL Albumin (3.5-5.0) g/dL Globulin (1.7-4.1) g/dL Albumin/Globulin Ratio (1.0-2.8) TSH (0.47-4.68) uIU/mL Free T4 5.21 H (0.78-2.19) ng/dL Free T3 12.10 H (2.77-5.27) pg/mL 12/14/18 Range/Units 15:25 WBC (4.5-11.0) X10^3/uL RBC (4.0-5.2) X10^6/uL Hgb (12.0-16.0) g/dL Hct (36-46) % MCV (80-100) fL MCH (26-34) PG MCHC (30-36) % RDW (11.6-14.8) % Plt Count (150-400) X10^3/uL Neut % (Auto) (50-75) % Lymph % (Auto) (25-40) % [place] % (Auto) (3-14) % Eos % (Auto) (2-4) % Baso % (Auto) (0-2) % Neut # (Auto) (4273-8271) /uL Lymph # (Auto) (4238-2403) /uL [place] # (Auto) (0-900) /uL Eos # (Auto) (0-450) /uL Baso # (Auto) (0-100) /uL PT (10.1-12.7) SECONDS INR (0.9-1.3) APTT (26.4-36.2) SECONDS Sodium (137-145) mmol/L Potassium (3.4-5.1) mmol/L Chloride (98-107) mmol/L Carbon Dioxide (22-32) mmol/L BUN (7-17) mg/dL Creatinine (0.52-1.04) mg/dL Estimated GFR (>60) mL/min BUN/Creatinine Ratio (6-22) Glucose (80-110) mg/dL Calcium (8.4-10.2) mg/dL Magnesium (1.6-2.3) mg/dL Total Bilirubin (0.2-1.3) mg/dL AST (14-36) IU/L ALT (9-52) IU/L Alkaline Phosphatase (38-126) U/L Total Creatine Kinase 36 (30-135) U/L CK-MB (CK-2) TNP CK-MB (CK-2) Rel Index TNP Troponin I < 0.012 (0.01-0.034) ng/mL B-Natriuretic Peptide (<100) Total Protein (6.3-8.2) g/dL Albumin (3.5-5.0) g/dL Globulin (1.7-4.1) g/dL Albumin/Globulin Ratio (1.0-2.8) TSH (0.47-4.68) uIU/mL Free T4 (0.78-2.19) ng/dL Free T3 (2.77-5.27) pg/mL Imaging Data Chest CTA: Radiologist's impression: [address] [address] XRay Report Signed Patient: Kisha Pack LMR#: [id number] : 03/20/1950Acct:[id number] Age/Sex: 68 / FDate of Service: 12/14/18 Loc: ED Accession Number: [id number] Procedure: XR chest 2V Ordering Provider: Elizabeth Lino D.O. PROCEDURE: XR CHEST 2V INDICATIONS: fever/fatigue TECHNIQUE: 2 views of the chest were acquired. COMPARISON: [facility], XR CXR 1 VIEW, 12/22/2004, 9:43. [facility], XR CXR 1 VIEW, 12/21/2004, 9:44. FINDINGS: Surgical changes and devices: None. Lungs and pleura: There is right hemidiaphragm eventration. Lungs are clear. No pleural effusions or pneumothorax. Mediastinum: Mediastinal contours are normal. Heart size is normal. Bones and chest wall: No suspicious bony abnormalities. Soft tissues appear unremarkable. IMPRESSION: No acute cardiopulmonary disease. Dictated by: Israel Beltran M.D. on 12/14/2018 at 14:21 Approved by: Israel Beltran M.D. on 12/14/2018 at 14:22 Chest x-ray: Radiologist's impression: [place] [address] XRay Report Signed Patient: Kisha Pack LMR#: [id number] : 03/20/1950Acct:[id number] Age/Sex: 68 / FDate of Service: 12/14/18 Loc: ED Accession Number: [id number] Procedure: XR chest 2V Ordering Provider: Elizabeth Lino D.O. PROCEDURE: XR CHEST 2V INDICATIONS: fever/fatigue TECHNIQUE: 2 views of the chest were acquired. COMPARISON: [facility], XR CXR 1 VIEW, 12/22/2004, 9:43. [facility], XR CXR 1 VIEW, 12/21/2004, 9:44. FINDINGS: Surgical changes and devices: None. Lungs and pleura: There is right hemidiaphragm eventration. Lungs are clear. No pleural effusions or pneumothorax. Mediastinum: Mediastinal contours are normal. Heart size is normal. Bones and chest wall: No suspicious bony abnormalities. Soft tissues appear unremarkable. IMPRESSION: No acute cardiopulmonary disease. Dictated by: Israel Beltran M.D. on 12/14/2018 at 14:21 Approved by: Israel Beltran M.D. on 12/14/2018 at 14:22 ECG Data Attestation: I personally reviewed and interpreted this ECG as follows: Prior ECG tracings: available for review Interpretation: Sinus rhythm. Ventricular rate 70. Pr interval 201. QRS duration 164. viewed by Dr Lino. Previous EKG showed as AFib. MDM Narrative Medical decision making narrative: The patient is a 63-year-old female with cardiac history and a recent pacemaker placement who presents from her PCP's office with a chief complaint of shortness of breath with exertion. The patient was hemodynamically stable throughout her stay in the emergency department given her history of heart failure, obtain a BNP which came back grossly normal. Her chest x-ray rules out pneumonia how every given that the patient had recent surgery she is at high risk of PE, so I obtained a CTA to rule out a PE. This came back normal with no evidence of pulmonary embolism. Given the patient's risk factors as well as dyspnea on exertion, I did obtain 2 troponins, which came back negative. I did call and speak with the patient's company marker, Dr. Tamayo who suggested that the patient be admitted at this facility for a stress test. Subsequently I spoke with Dr. Green, who kindly agreed to admit the patient for stress test and further workup. Patient states accordance with plan and has no questions or concerns. She expresses relief as she states she has ?wanted a stress test lately. <Elizabeth Lino, DO - Last Filed: 12/16/18 18:05> Lab Data Labs: Lab Results 12/14/18 12/14/18 12/14/18 Range/Units 12:07 12:07 12:07 WBC 7.6 (4.5-11.0) X10^3/uL RBC 4.38 (4.0-5.2) X10^6/uL Hgb 13.2 (12.0-16.0) g/dL Hct 39.6 (36-46) % MCV 90.4 (80-100) fL MCH 30.2 (26-34) PG MCHC 33.5 (30-36) % RDW 12.7 (11.6-14.8) % Plt Count 211 (150-400) X10^3/uL Neut % (Auto) 57.8 (50-75) % Lymph % (Auto) 28.1 (25-40) % [place] % (Auto) 11.8 (3-14) % Eos % (Auto) 1.9 L (2-4) % Baso % (Auto) 0.4 (0-2) % Neut # (Auto) 4400 (1735-4598) /uL Lymph # (Auto) 2100 (3191-4967) /uL [place] # (Auto) 900 (0-900) /uL Eos # (Auto) 100 (0-450) /uL Baso # (Auto) 0 (0-100) /uL PT (10.1-12.7) SECONDS INR (0.9-1.3) APTT (26.4-36.2) SECONDS Sodium 139 (137-145) mmol/L Potassium 3.8 (3.4-5.1) mmol/L Chloride 103 (98-107) mmol/L Carbon Dioxide 26 (22-32) mmol/L BUN 21 H (7-17) mg/dL Creatinine 0.70 (0.52-1.04) mg/dL Estimated GFR > 60.0 (>60) mL/min BUN/Creatinine Ratio 30.0 H (6-22) Glucose 105 (80-110) mg/dL Calcium 9.7 (8.4-10.2) mg/dL Magnesium (1.6-2.3) mg/dL Total Bilirubin 0.7 (0.2-1.3) mg/dL AST 36 (14-36) IU/L ALT 34 (9-52) IU/L Alkaline Phosphatase 61 (38-126) U/L Total Creatine Kinase 42 (30-135) U/L CK-MB (CK-2) TNP CK-MB (CK-2) Rel Index TNP Troponin I < 0.012 (0.01-0.034) ng/mL B-Natriuretic Peptide (<100) Total Protein 7.4 (6.3-8.2) g/dL Albumin 4.1 (3.5-5.0) g/dL Globulin 3.3 (1.7-4.1) g/dL Albumin/Globulin Ratio 1.2 (1.0-2.8) TSH (0.47-4.68) uIU/mL Free T4 (0.78-2.19) ng/dL Free T3 (2.77-5.27) pg/mL 12/14/18 12/14/18 12/14/18 Range/Units 12:07 12:07 12:07 WBC (4.5-11.0) X10^3/uL RBC (4.0-5.2) X10^6/uL Hgb (12.0-16.0) g/dL Hct (36-46) % MCV (80-100) fL MCH (26-34) PG MCHC (30-36) % RDW (11.6-14.8) % Plt Count (150-400) X10^3/uL Neut % (Auto) (50-75) % Lymph % (Auto) (25-40) % [place] % (Auto) (3-14) % Eos % (Auto) (2-4) % Baso % (Auto) (0-2) % Neut # (Auto) (8165-1430) /uL Lymph # (Auto) (0620-6891) /uL [place] # (Auto) (0-900) /uL Eos # (Auto) (0-450) /uL Baso # (Auto) (0-100) /uL PT 16.6 H (10.1-12.7) SECONDS INR 1.4 H (0.9-1.3) APTT 37 H D (26.4-36.2) SECONDS Sodium (137-145) mmol/L Potassium (3.4-5.1) mmol/L Chloride (98-107) mmol/L Carbon Dioxide (22-32) mmol/L BUN (7-17) mg/dL Creatinine (0.52-1.04) mg/dL Estimated GFR (>60) mL/min BUN/Creatinine Ratio (6-22) Glucose (80-110) mg/dL Calcium (8.4-10.2) mg/dL Magnesium (1.6-2.3) mg/dL Total Bilirubin (0.2-1.3) mg/dL AST (14-36) IU/L ALT (9-52) IU/L Alkaline Phosphatase (38-126) U/L Total Creatine Kinase (30-135) U/L CK-MB (CK-2) CK-MB (CK-2) Rel Index Troponin I (0.01-0.034) ng/mL B-Natriuretic Peptide 105 H (<100) Total Protein (6.3-8.2) g/dL Albumin (3.5-5.0) g/dL Globulin (1.7-4.1) g/dL Albumin/Globulin Ratio (1.0-2.8) TSH < 0.02 L (0.47-4.68) uIU/mL Free T4 (0.78-2.19) ng/dL Free T3 (2.77-5.27) pg/mL 12/14/18 12/14/18 12/14/18 Range/Units 12:07 12:07 12:07 WBC (4.5-11.0) X10^3/uL RBC (4.0-5.2) X10^6/uL Hgb (12.0-16.0) g/dL Hct (36-46) % MCV (80-100) fL MCH (26-34) PG MCHC (30-36) % RDW (11.6-14.8) % Plt Count (150-400) X10^3/uL Neut % (Auto) (50-75) % Lymph % (Auto) (25-40) % [place] % (Auto) (3-14) % Eos % (Auto) (2-4) % Baso % (Auto) (0-2) % Neut # (Auto) (2791-5885) /uL Lymph # (Auto) (9456-0795) /uL [place] # (Auto) (0-900) /uL Eos # (Auto) (0-450) /uL Baso # (Auto) (0-100) /uL PT (10.1-12.7) SECONDS INR (0.9-1.3) APTT (26.4-36.2) SECONDS Sodium (137-145) mmol/L Potassium (3.4-5.1) mmol/L Chloride (98-107) mmol/L Carbon Dioxide (22-32) mmol/L BUN (7-17) mg/dL Creatinine (0.52-1.04) mg/dL Estimated GFR (>60) mL/min BUN/Creatinine Ratio (6-22) Glucose (80-110) mg/dL Calcium (8.4-10.2) mg/dL Magnesium 1.8 (1.6-2.3) mg/dL Total Bilirubin (0.2-1.3) mg/dL AST (14-36) IU/L ALT (9-52) IU/L Alkaline Phosphatase (38-126) U/L Total Creatine Kinase (30-135) U/L CK-MB (CK-2) CK-MB (CK-2) Rel Index Troponin I (0.01-0.034) ng/mL B-Natriuretic Peptide (<100) Total Protein (6.3-8.2) g/dL Albumin (3.5-5.0) g/dL Globulin (1.7-4.1) g/dL Albumin/Globulin Ratio (1.0-2.8) TSH (0.47-4.68) uIU/mL Free T4 5.21 H (0.78-2.19) ng/dL Free T3 12.10 H (2.77-5.27) pg/mL 12/14/18 Range/Units 15:25 WBC (4.5-11.0) X10^3/uL RBC (4.0-5.2) X10^6/uL Hgb (12.0-16.0) g/dL Hct (36-46) % MCV (80-100) fL MCH (26-34) PG MCHC (30-36) % RDW (11.6-14.8) % Plt Count (150-400) X10^3/uL Neut % (Auto) (50-75) % Lymph % (Auto) (25-40) % [place] % (Auto) (3-14) % Eos % (Auto) (2-4) % Baso % (Auto) (0-2) % Neut # (Auto) (0765-0248) /uL Lymph # (Auto) (0161-8841) /uL [place] # (Auto) (0-900) /uL Eos # (Auto) (0-450) /uL Baso # (Auto) (0-100) /uL PT (10.1-12.7) SECONDS INR (0.9-1.3) APTT (26.4-36.2) SECONDS Sodium (137-145) mmol/L Potassium (3.4-5.1) mmol/L Chloride (98-107) mmol/L Carbon Dioxide (22-32) mmol/L BUN (7-17) mg/dL Creatinine (0.52-1.04) mg/dL Estimated GFR (>60) mL/min BUN/Creatinine Ratio (6-22) Glucose (80-110) mg/dL Calcium (8.4-10.2) mg/dL Magnesium (1.6-2.3) mg/dL Total Bilirubin (0.2-1.3) mg/dL AST (14-36) IU/L ALT (9-52) IU/L Alkaline Phosphatase (38-126) U/L Total Creatine Kinase 36 (30-135) U/L CK-MB (CK-2) TNP CK-MB (CK-2) Rel Index TNP Troponin I < 0.012 (0.01-0.034) ng/mL B-Natriuretic Peptide (<100) Total Protein (6.3-8.2) g/dL Albumin (3.5-5.0) g/dL Globulin (1.7-4.1) g/dL Albumin/Globulin Ratio (1.0-2.8) TSH (0.47-4.68) uIU/mL Free T4 (0.78-2.19) ng/dL Free T3 (2.77-5.27) pg/mL Discharge Plan Departure Patient Disposition: Admitted as Observation Clinical Impression: Shortness of breath on exertion Discharge Date/Time: 12/14/18 17:25 Instructions: DI for Atrial Fibrillation, DI for Hyperthyroidism, Prednisone, Methimazole Referrals: Giulia García DO [Primary Care Provider] - Admit Date/Time: 12/14/18 16:45 Admit Provider: Madina Green
[2018-12-14 12:53] LABS: INR 1.4 (0.9-1.3); Prothrombin Time 16.6 SECONDS (10.1-12.7)
[2018-12-14 12:56] LABS: PTT Partial Thromboplastin Tim 37 SECONDS (26.4-36.2)
[2018-12-14 13:39] LABS: Creatine Kinase 42 U/L (30-135)
[2018-12-14 13:52] LABS: Troponin I < 0.012 ng/mL (0.01-0.034)
--- NOTE | 2018-12-14 14:14 | DI.CT.S_ITS ---
PROCEDURE: CT ANGIO CHEST PE PROTOCOL INDICATIONS: sob,post op TECHNIQUE: After the administration of intravenous contrast, 2 mm thick sections acquired from the pulmonary apices to the posterior costophrenic angles. 3-dimensional maximum intensity projection (MIP) coronal and sagittal reformats were then acquired through the thorax. For radiation dose reduction, the following was used: automated exposure control, adjustment of mA and/or kV according to patient size. COMPARISON: None. FINDINGS: Image quality: Excellent. Pulmonary arteries: Pulmonary arteries are normal in size, and demonstrate no intraluminal filling defects to suggest central pulmonary embolism. Lungs and pleura: Lungs are clear. No pleural effusions or pneumothorax. Central and peripheral airways are patent. Mediastinum: Heart size is enlarged, without pericardial effusion. No mediastinal or hilar adenopathy. Thoracic aorta is normal in caliber and enhancement. Esophagus is normal in caliber, without hiatal hernia. Bones and chest wall: Left chest wall cardiac pacer. No suspicious bony lesions. Ribs and thoracic spine appear intact throughout. Thyroid gland is within normal limits. No axillary or supraclavicular adenopathy. Abdomen: Visualized upper abdominal solid organs appear normal in the early arterial phase of enhancement. IMPRESSION: 1. No pulmonary embolus. 2. No lung consolidation or pleural effusions. Dictated by: Aurelia Penaloza MD, PhD on 12/14/2018 at 13:36 Approved by: Aurelia Penaloza MD, PhD on 12/14/2018 at 13:41
[2018-12-14 15:43] LABS: Creatine Kinase 36 U/L (30-135)
[2018-12-14 15:55] LABS: Troponin I < 0.012 ng/mL (0.01-0.034)
--- NOTE | 2018-12-14 19:43 | PM.HP.1 ---
History of Present Illness History of Present Illness Date Patient Seen: 12/14/18 Time Patient Seen: 20:33 Chief complaint: SOB Narrative: The patient is a 63-year-old female with PMH of HTN, chronic atrial fibrillation (s/p successful cardioversion 05/2015), h/o VTACH (controlled w/ amiodarone therapy), chronic anticoagulation w/ apixaban, dual-lead PPM implant (11/20/2018, [facility]), right-sided heart failure, 50 PYH of tobacco dependence (quit 04/2018), marijuana use, obesity, depression, anxiety, Patient presented to the ED per direction of her PCP (Dr. Arnold). Presents out of concern for exertional dyspnea. Symptoms present for one week. No associated chest pain, dizziness, lightheadedness, or syncopal events. Denies peripheral edema, orthopnea, and PND. No recent fever or chills. Patient reports being able to walk 50 ft prior to needing to rest. Notes recurrent bring fairly quickly. Given patient's description, it is not entirely clear if she is short of breath or profoundly weak, ie. exertional dyspnea vs. exercise / activity intolerance. Patient is known to have underlying atrial fibrillation, which according to the patient was diagnosed 4 years ago. At that time also notes episodes of ventricular tachycardia. In 2015 she underwent successful cardioversion. Reports adequate heart rate control with amiodarone and metoprolol until 1-2 months ago. At that time she has experienced multiple syncopal events. 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 Consequently, patient underwent dual lead ppm implant on 11/20/2018. Prior to ppm implant she was anticoagulated with warfarin. Post procedure, warfarin was replaced with apixaban. She was also taken off amiodarone due to concern for amiodarone induced thyroid dysfunction, specifically thyrotoxicosis. ED Presentation & Work-Up VS. T 97.8 BP 109/78 HR 70 RR 14 SpO2 96% on RA GCS 15. No pain on presentation. WT 106.14 (stated by pt) Labs, 12/14 Wbc 7.6 Hgb 13.2 Plt 211 PT 16.6 INR 1.4 aPTT 37 Na 139 K 3.9 Cl 103 Ca Ca 9.7 Alb 4.1 Glu 105 CO2 26 BUN 21 Cr 0.7 GFR > 60 BUN:Cr 30 AST 36 ALT 34 Alk Phos 61 T.Bili 0.7 Trop < 0.012 CK 36 BNP 105 CXR: no acute disease CT CHEST: no pulmonary embolus; no lung consolidation or pleural effusion; cardiomegaly, no pericardial effusion Patient History Medical History (Updated 12/15/18 @ 03:06 by FAHEEM Gr) Anxiety and depression (Acute) Atrial fibrillation (Chronic) CHF (congestive heart failure) (Chronic) Chronic anticoagulation (Chronic) History of tobacco use disorder (Acute) Hx of amiodarone therapy (Acute) Hypertension (Acute) Marijuana use (Acute) Sick sinus syndrome (Acute) Surgical History (Updated 12/15/18 @ 02:58 by FAHEEM Gr) History of cardioversion (Chronic 05/2015) S/P placement of cardiac pacemaker (Acute 11/20/18) Family History Mother Atrial fibrillation Peptic ulcer disease GIB (gastrointestinal bleeding) Father Valvular heart disease Stomach cancer Sister Atrial fibrillation Social History household members: spouse Smoking Status: Former smoker alcohol intake: never substance use type: does not use Family & Social History Family History Mother Atrial fibrillation Peptic ulcer disease GIB (gastrointestinal bleeding) Father Valvular heart disease Stomach cancer Sister Atrial fibrillation Social History: household members . Lives w/ spouse. Prior Living Arrangements House Safety & Behavioral: Feels Safe in Current Yes Environment Tobacco & Substance use: Smoking Status Lifelong smoker, 50 pack year history, quit 04/2018 alcohol intake Never alcohol intake frequency 0-2 drinks per day Substance Use Type Marijuana, daily, 1-2 puffs. Meds Home Medications and Allergies Home Medications Medication Instructions Recorded Confirmed Type lisinopril 2.5 mg tablet 2.5 mg PO QPM 07/09/17 12/14/18 History bupropion HCl 200 mg tablet,12 hr 200 mg PO DAILY #30 tab 08/13/18 12/14/18 Rx sustained-release alprazolam [Xanax] 0.5 mg PO BID PRN 11/20/18 12/14/18 History fluoxetine 20 mg PO DAILY 11/20/18 12/14/18 History furosemide [Lasix] 20 mg PO DAILY 11/20/18 12/14/18 History apixaban 5 mg tablet 5 mg PO BID 12/14/18 12/14/18 History metoprolol succinate 100 mg 150 mg PO BID 12/14/18 12/14/18 History tablet,extended release 24 hr Allergies Allergy/AdvReac Type Severity Reaction Status Date / Time No Known Drug Allergies Allergy Verified 12/14/18 11:09 Review of Systems Review of Systems ROS Unobtainable: All systems reviewed & are unremarkable except as noted in HPI and below Exam Vital Signs (past 8 hours): - 12/14/18 11:57 12/14/18 12:39 12/14/18 14:30 Temperature 97.8 F Pulse Rate 70 77 69 Respiratory Rate 14 19 14 Blood Pressure 109/78 Blood Pressure [Right Arm] 135/101 H 112/53 L Pulse Oximetry 96 96 99 12/14/18 15:30 12/14/18 17:19 Temperature Pulse Rate 70 68 Respiratory Rate 14 18 Blood Pressure 110/68 Blood Pressure [Right Arm] 104/49 L Pulse Oximetry 97 97 Oxygen Delivery Method Room Air Narrative Exam Narrative: Constitutional: Obese (BMI 33.6) female in no acute distress Neurologic: AOx3, no focal neurological deficits Head: NC, AT Eyes: PERRL, EOMI, no scleral icterus Ears: external ears normal Nose: external nose normal, no rhinorrhea or epistaxis Throat: MMM, oropharynx w/o exudate Neck: no masses, lymphadenopathy, or JVD Chest / Respiratory: equal chest rise, unlabored respiratory effort, no tachypnea on room air, Heart / CV: S1S2, distant, no murmur Abdomen / GI: round, NT, ND, + BS, no organomegaly : no suprapubic tenderness, no CVA Peripheral / Vascular: warm to touch, DP and PT pulses palpable, no edema Musc: full ROM of upper and lower extremities, adequate muscle tone and bulk Skin: no ecchymosis or suspicious lesions / ulcers Objective Labs Result Diagrams: 12/14/18 12:07 12/14/18 12:07 Labs: Laboratory Results - last 24 hr 12/14/18 12/14/18 12/14/18 12:07 12:07 12:07 WBC 7.6 RBC 4.38 Hgb 13.2 Hct 39.6 MCV 90.4 MCH 30.2 MCHC 33.5 RDW 12.7 Plt Count 211 Neut % (Auto) 57.8 Lymph % (Auto) 28.1 [place] % (Auto) 11.8 Eos % (Auto) 1.9 L Baso % (Auto) 0.4 Neut # (Auto) 4400 Lymph # (Auto) 2100 [place] # (Auto) 900 Eos # (Auto) 100 Baso # (Auto) 0 PT INR APTT Sodium 139 Potassium 3.8 Chloride 103 Carbon Dioxide 26 BUN 21 H Creatinine 0.70 Estimated GFR > 60.0 BUN/Creatinine Ratio 30.0 H Glucose 105 Calcium 9.7 Total Bilirubin 0.7 AST 36 ALT 34 Alkaline Phosphatase 61 Total Creatine Kinase 42 CK-MB (CK-2) TNP CK-MB (CK-2) Rel Index TNP Troponin I < 0.012 B-Natriuretic Peptide Total Protein 7.4 Albumin 4.1 Globulin 3.3 Albumin/Globulin Ratio 1.2 12/14/18 12/14/18 12/14/18 12:07 12:07 15:25 WBC RBC Hgb Hct MCV MCH MCHC RDW Plt Count Neut % (Auto) Lymph % (Auto) [place] % (Auto) Eos % (Auto) Baso % (Auto) Neut # (Auto) Lymph # (Auto) [place] # (Auto) Eos # (Auto) Baso # (Auto) PT 16.6 H INR 1.4 H APTT 37 H D Sodium Potassium Chloride Carbon Dioxide BUN Creatinine Estimated GFR BUN/Creatinine Ratio Glucose Calcium Total Bilirubin AST ALT Alkaline Phosphatase Total Creatine Kinase 36 CK-MB (CK-2) TNP CK-MB (CK-2) Rel Index TNP Troponin I < 0.012 B-Natriuretic Peptide 105 H Total Protein Albumin Globulin Albumin/Globulin Ratio Assessment & Plan Assessment & Plan narrative: Patient is being admitted under observation status for evaluation and work-up of exertional dyspnea. Exertional Dyspnea, acute present on admission, active - Trop WNL - CXR negative for acute cardiopulmonary findings - CT CHEST negative for PE - NPO @ midnight. Stress test in am. 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) implant on 11/20/2018 - Consider device interrogation - Pending outpatient cardiology appointment on Mar 05, 2019 @ 3 pm w/ Dr. Tamyao Diastolic HFpEF 55-60% (echo 07/28/2015), chronic condition, present on admission, stable Echo, 07/28/2015: LV normal size and systolic fx, EF 55-60%. Concentric LVH. No obvious focal wall motion (noted to have poor endcoardial definition). Grade II diastolic dysfunction. Normal RV size and function. No significant valvular abnormalities. Mild to moderate dilatation of the ascending aorta (diameter 4.1 cm). - No active s/s of volume excess - Continue [employer] MET[employer] regimen of furosemide 20 mg QD - Monitor and replete electrolyte deficiencies - Will request records from [facility], likely there is a more updated echo study given recent PPM implant Depression and Anxiety, chronic condition, present on admission, stable - No harmful ideation towards self or others - [employer] METAL on fluoxetine 20 mg daily, bupropion 200 mg daily, and alprazolam 0.5 mg bid prn, resume bupropion and alprazolam - Hold fluoxetine as it carried moderate risk for enhancing adverse/toxic effects of apixaban Code status discussed. Patient wishes to be full code. No formal health directive. Designates spouse as proxy decision maker. Home medications reviewed and reconciled accordingly VTE prophylaxis: apixaban resumed
[2018-12-14] MEDS: SODIUM CHLORIDE 0.9% FLUSH 10 ML IV (21:09)
--- NOTE | 2018-12-14 21:10 | PC.NURSE ---
pt arrived at 1732, A&OX3, 96%RA. denied pain. SOB w/exertion. SBA to the BR. oriented pt to the room. call light in reach.
[2018-12-14 21:25] LABS: Magnesium 1.8 mg/dL (1.6-2.3)
[2018-12-14 21:42] LABS: Free T4, Direct Thyroxine 5.21 ng/dL (0.78-2.19)
[2018-12-14 21:56] LABS: Thyroid Stimulating Hormone < 0.02 uIU/mL (0.47-4.68)
[2018-12-14] MEDS: APIXABAN 5 MG TABLET PO (22:35)
--- NOTE | 2018-12-14 23:50 | PC.NURSE ---
Addendum entered by Perri Parsons R.N. 12/15/18 06:06: Slept most of night. 0400 telemetry reading was afib RVR w/BBB. Noted to have HR fluctuating between 90-130's. Slept most of shift. Addendum entered by Perri Parsons R.N. 12/15/18 00:33: Noted patient's HR to be fluctuating up into 120 range. FAHEEM informed and order received for Metoprolol. Original Note: Patient is alert and oriented. Breath sounds diminished but CTA with RA sat of 96%. HRR; on telemetry w/last documented reading of SR w/BBB. Denies nausea. BT present and abdomen is soft. Denies dysuria, frequency, or urgency. Able to turn self in bed. Several recent falls due to syncope so is high fall risk; verbalizes agreement to call for assist when getting out of bed. Chair alarm is being used and patient verbalizes understanding. Denies pain. NPO except water after 0000 per discussion with Carito MAYEN.
[2018-12-15] VITALS (12 sets, daily range): BP systolic 94–131; BP diastolic 51–70; PULSE 92–131; RESP 16–18; TEMP 36.5–36.9; O2SAT 93–97
[2018-12-15] MEDS: SODIUM CHLORIDE 0.9% FLUSH 10 ML IV ×3 (00:19→20:22)
[2018-12-15] MEDS: METOPROLOL TARTRATE 5 MG/5 ML INJ IV (00:19)
--- NOTE | 2018-12-15 03:08 | DI.US.S_ITS ---
PROCEDURE: US THYROID INDICATIONS: ABNORMAL THYROID FUNCTION TECHNIQUE: Real-time scanning was performed of the thyroid gland, with image documentation. COMPARISON: CT pulmonary angiogram 12/14/2018. FINDINGS: Right: Thyroid lobe measures 5.4 x 1.8 x 1.7 cm, and is homogeneous in echotexture. Left: Thyroid lobe measures 4.7 x 1.6 x 1.6 cm, and is homogenous in echotexture. Isthmus: 3 mm thick. Nodule number: 1 Location: Right mid medial Size: 0.5 x 0.3 x 0.4 cm. Composition: Prominently solid Echogenicity: Hypoechoic Shape: Wider than tall Margins: Smooth Echogenic foci: None Total points: 4 ACR TI-RADS category: 4 Nodule number: 2 Location: Left superior lateral Size: 1 x 0.8 x 0.8 cm. Composition: Solid Echogenicity: Isoechoic Shape: Wider than tall Margins: Ill-defined Echogenic foci: None Total points: 5 ACR TI-RADS category: 4 Nodule number: 3 Location: Left inferior posterior to the thyroid gland and likely a parathyroid gland Size: 1.7 x 0.7 x 0.6 cm. Composition: Solid Echogenicity: Hypoechoic Margins: Smooth No increased vascularity. IMPRESSION: 1. Left superior thyroid nodule measuring 1 cm. TI-RADS 4. Followup ultrasound recommended in one year. 2. Prominent left inferior parathyroid gland. Correlation with calcium levels and parathyroid hormone may be helpful for evaluation for parathyroid adenoma. ACR TI-RADS definitions and recommendations: TI-RADS 1 (benign): 0 points. FNA not needed. TI-RADS 2 (not suspicious): 2 points. FNA not needed. TI-RADS 3 (mildly suspicious): 3 points. * FNA if 2.5 cm or larger, follow up if 1.5 cm or larger (at 1, 3, and 5 years). TI-RADS 4 (moderately suspicious): 4-6 points. * FNA if 1.5 cm or larger, follow up if 1 cm or larger (at 1, 2, 3, and 5 years). TI-RADS 5 (highly suspicious): 7 points or more. * FNA if 1 cm or larger, follow up if 0.5 cm or larger (every year for 5 years). Dictated by: Andre Martinez M.D. on 12/15/2018 at 10:19 Approved by: Andre Martinez M.D. on 12/15/2018 at 10:27
[2018-12-15] MEDS: METOPROLOL ER 50 MG TABLET 150 MG PO (07:44)
[2018-12-15] MEDS: APIXABAN 5 MG TABLET PO ×2 (10:14→20:57)
[2018-12-15] MEDS: buPROPion SR 100 MG TAB 200 MG PO (10:14)
[2018-12-15] MEDS: FUROSEMIDE 20 MG TABLET PO (10:14)
--- NOTE | 2018-12-15 10:40 | PM.PN.1 ---
Subjective Subjective Date Patient Seen: 12/15/18 Time Patient Seen: 09:00 Interval history: Ms Herson Frost is a 63-year-old female with PMH of HTN, chronic atrial fibrillation (s/p successful cardioversion 05/2015), h/o VTACH (controlled w/ amiodarone therapy), chronic anticoagulation w/ apixaban, dual-lead PPM implant (11/20/2018, [facility]), right-sided heart failure, 50 PYH of tobacco dependence (quit 04/2018), marijuana use, obesity, depression, anxiety who was admitted for dyspnea on exertion. She still remains short of breath on exertion to the bathroom in is not improved today. This morning she had a 6 beat run of possible NSVT, although it is difficult to clarify if this is ventricular tachycardia or atrial fibrillation with aberrancy. She underwent a stress test today which was read as low risk of ischemic disease. She was in rapid AFib during the study. She has not had a echo yet and she remains tachycardic into the 130s. I called and discussed the case with the concierge manager at [facility], who will see her in the clinic in January as this was the earliest appointment, however he recommended treatment with methimazole and he recommended a short course of steroids. Exam Vital Signs (past 8 hours): - 12/15/18 05:15 12/15/18 07:40 12/15/18 07:44 Temperature 98.4 F 97.7 F Pulse Rate 96 H 98 H 98 H Respiratory Rate 18 16 Blood Pressure 114/70 112/62 112/62 Pulse Oximetry 96 96 12/15/18 08:02 Temperature Pulse Rate 122 H Respiratory Rate Blood Pressure Pulse Oximetry 95 Oxygen Delivery Method Room Air Oxygen Flow Rate 0 Narrative Exam Narrative: GENERAL APPEARANCE: Well developed, well nourished, in no acute distress. SKIN: Inspection of the skin reveals no rashes, ulcerations or petechiae. HEENT: The sclerae were anicteric and conjunctivae were pink and moist. Extraocular movements were intact and pupils were equal, round with normal accommodation. External inspection of the ears and nose showed no scars, lesions, or masses. Lips, teeth, and gums showed normal mucosa. The oral mucosa, hard and soft palate, tongue and posterior pharynx were unremarkable. NECK: Supple and symmetric. There was no thyroid enlargement, and no tenderness. There was a left sided thyroid nodule present. CHEST: Normal AP diameter and normal contour without any kyphoscoliosis. LUNGS: Auscultation of the lungs revealed no wheezes, rhonchi, or rales. CARDIOVASCULAR: Tachycardic, irregularly irregular. Peripheral pulses were 2+ and symmetric. ABDOMEN: Soft and nontender with normal bowel sounds. No ascites was noted. MUSCULOSKELETAL: There was no tenderness or effusions noted. Muscle strength and tone were normal. EXTREMITIES: No cyanosis, clubbing or edema. NEUROLOGIC: Alert and oriented x 3. Normal affect. Gait was normal. Strength is +5/5 in the Upper Extremities and Lower Extremities Bilaterally. Sensation to touch was normal. Mild tremor noted on exam in upper extremities. Objective Labs Result Diagrams: 12/14/18 12:12/14/18 12:07 Labs: Laboratory Results - last 24 hr 12/14/18 12/14/18 12/14/18 12: 12:07 12:07 WBC 7.6 RBC 4.38 Hgb 13.2 Hct 39.6 MCV 90.4 MCH 30.2 MCHC 33.5 RDW 12.7 Plt Count 211 Neut % (Auto) 57.8 Lymph % (Auto) 28.1 [place] % (Auto) 11.8 Eos % (Auto) 1.9 L Baso % (Auto) 0.4 Neut # (Auto) 4400 Lymph # (Auto) 2100 [place] # (Auto) 900 Eos # (Auto) 100 Baso # (Auto) 0 PT INR APTT Sodium 139 Potassium 3.8 Chloride 103 Carbon Dioxide 26 BUN 21 H Creatinine 0.70 Estimated GFR > 60.0 BUN/Creatinine Ratio 30.0 H Glucose 105 Calcium 9.7 Magnesium Total Bilirubin 0.7 AST 36 ALT 34 Alkaline Phosphatase 61 Total Creatine Kinase 42 CK-MB (CK-2) TNP CK-MB (CK-2) Rel Index TNP Troponin I < 0.012 B-Natriuretic Peptide Total Protein 7.4 Albumin 4.1 Globulin 3.3 Albumin/Globulin Ratio 1.2 TSH Free T4 Free T3 12/14/18 12/14/18 12/14/18 12: 12: 12:07 WBC RBC Hgb Hct MCV MCH MCHC RDW Plt Count Neut % (Auto) Lymph % (Auto) [place] % (Auto) Eos % (Auto) Baso % (Auto) Neut # (Auto) Lymph # (Auto) [place] # (Auto) Eos # (Auto) Baso # (Auto) PT 16.6 H INR 1.4 H APTT 37 H D Sodium Potassium Chloride Carbon Dioxide BUN Creatinine Estimated GFR BUN/Creatinine Ratio Glucose Calcium Magnesium Total Bilirubin AST ALT Alkaline Phosphatase Total Creatine Kinase CK-MB (CK-2) CK-MB (CK-2) Rel Index Troponin I B-Natriuretic Peptide 105 H Total Protein Albumin Globulin Albumin/Globulin Ratio TSH < 0.02 L Free T4 Free T3 12/14/18 12/14/18 12/14/18 12:07 12:07 12:07 WBC RBC Hgb Hct MCV MCH MCHC RDW Plt Count Neut % (Auto) Lymph % (Auto) [place] % (Auto) Eos % (Auto) Baso % (Auto) Neut # (Auto) Lymph # (Auto) [place] # (Auto) Eos # (Auto) Baso # (Auto) PT INR APTT Sodium Potassium Chloride Carbon Dioxide BUN Creatinine Estimated GFR BUN/Creatinine Ratio Glucose Calcium Magnesium 1.8 Total Bilirubin AST ALT Alkaline Phosphatase Total Creatine Kinase CK-MB (CK-2) CK-MB (CK-2) Rel Index Troponin I B-Natriuretic Peptide Total Protein Albumin Globulin Albumin/Globulin Ratio TSH Free T4 5.21 H Free T3 12.10 H 12/14/18 15:25 WBC RBC Hgb Hct MCV MCH MCHC RDW Plt Count Neut % (Auto) Lymph % (Auto) [place] % (Auto) Eos % (Auto) Baso % (Auto) Neut # (Auto) Lymph # (Auto) [place] # (Auto) Eos # (Auto) Baso # (Auto) PT INR APTT Sodium Potassium Chloride Carbon Dioxide BUN Creatinine Estimated GFR BUN/Creatinine Ratio Glucose Calcium Magnesium Total Bilirubin AST ALT Alkaline Phosphatase Total Creatine Kinase 36 CK-MB (CK-2) TNP CK-MB (CK-2) Rel Index TNP Troponin I < 0.012 B-Natriuretic Peptide Total Protein Albumin Globulin Albumin/Globulin Ratio TSH Free T4 Free T3 Assessment & Plan Assessment & Plan narrative: Ms Herson Frost is a 63-year-old female with PMH of HTN, chronic atrial fibrillation (s/p successful cardioversion 05/2015), h/o VTACH (controlled w/ amiodarone therapy), chronic anticoagulation w/ apixaban, dual-lead PPM implant (11/20/2018, [facility]), right-sided heart failure, 50 PYH of tobacco dependence (quit 04/2018), marijuana use, obesity, depression, anxiety who was admitted for dyspnea on exertion. This is likely secondary to AFib with RVR which appears to be secondary to hyperthyroidism at this time. 1. Exertional Dyspnea, acute present on admission, active -likely secondary to AFib which is secondary to hyperthyroidism. Differential includes possible stress induced cardiomyopathy (pending TTE but less likely). Stress testing today was classified as low risk. - Trop WNL - CXR negative for acute cardiopulmonary findings - CT CHEST negative for PE -stress test was classified as low risk today -awaiting TTE -thyroid studies as noted below 2. Atrial Fibrillation, chronic, present on admission, active -classified as persistent as patient was previously on amiodarone however this was discontinued. She remains in AFib with rates into the 130s. This worsening is likely secondary to hyperthyroidism which needs to be treated. It will be difficult to rate control her with out controlling her thyroid dysfunction. - Continue metoprolol and apixaban - ventricular rate, variable 90-130s, asymptomatic 3. 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 Free t4 and t3 elevated. - started on methimazole today 12/15/18. - Suspected to be amiodarone induced, amiodarone was stopped 11/24/2018 (TSH 0.005, FT4 4.23, FT3 256 on d/c from [facility], 11/24) although this is not confirmed. - Thyroid U/S showing L sided nodule and possible enlarged parathyroid gland, however no abnormal calcium levels. Can be evaluated as an outpatient. - Patient has a pending outpatient referral to endocrinology at [facility] and I made her the soonest available appointment on February 05, I called and discussed the case with her concierge manager as noted above in subjective. We will start her on methimazole 10 mg daily and I will give her a 5 week taper of prednisone starting with 40 mg today. She will take 40 mg x2 weeks, then 30 mg for 1 week, 20 mg for 1 week, and 10 mg for the final week. 4. Sick sinus syndrome, chronic condition, present on admission, active - S/P dual-lead PPM ([facility]) implant on 11/20/2018 - Pending outpatient cardiology appointment on Mar 05, 2019 @ 3 pm w/ Dr. Tamayo 5. Diastolic HFpEF 55-60% (echo 07/28/2015), chronic condition, present on admission, stable Echo, 07/28/2015: LV normal size and systolic fx, EF 55-60%. Concentric LVH. No obvious focal wall motion (noted to have poor endcoardial definition). Grade II diastolic dysfunction. Normal RV size and function. No significant valvular abnormalities. Mild to moderate dilatation of the ascending aorta (diameter 4.1 cm). - No active s/s of volume excess - Continue [employer] regimen of furosemide 20 mg QD - Monitor and replete electrolyte deficiencies - will repeat TTE. 6. Depression and Anxiety, chronic condition, present on admission, stable - No harmful ideation towards self or others - [employer] DES[employer] on fluoxetine 20 mg daily, bupropion 200 mg daily, and alprazolam 0.5 mg bid prn, resume bupropion and alprazolam - Hold fluoxetine as it carried moderate risk for enhancing adverse/toxic effects of apixaban Code status discussed. Patient wishes to be full code. No formal health directive. Designates spouse as proxy decision maker. Home medications reviewed and reconciled accordingly VTE prophylaxis: apixaban resumed
--- NOTE | 2018-12-15 12:12 | PM.TREADMILL ---
Cardiac Stress Test Report Referral & Results Date Patient Seen: 12/15/18 Time Patient Seen: 12:12 Requesting provider: Jignesh Chung Indication: Dyspnea upon exertion Rest ECG: Atrial fibrillation with rapid ventricular response with heart rate ranging up to 130+ at rest Procedure Note: This was initially scheduled as an exercise Cardiolite but because of patient's uncontrolled atrial fibrillation was converted to a resting Lexiscan. After both written and verbal informed consent the patient was hooked up to the treadmill monitoring system. The Lexiscan material, and then the Cardiolite tracer, were administered sequentially. An additional 3 min was spent monitoring the patient while supine on the gurney. The patient had a normal response to all infused materials. Impression: Poorly controlled atrial fibrillation as above, patient did receive metoprolol last night and this morning it appears. Question this is the source of her symptoms. Please see perfusion imaging report as well for details regarding possible ischemia Please note: Actual ECG tracings can be found in the PACS system.
--- NOTE | 2018-12-15 13:54 | DI.ECHO.S_ITS ---
[facility] +---------+ : : [address] : : : : [id number] : : : : Phone: [phone]---------+ Echocardiogram Report + + :Name: DELFINA RUEDA AIYANA Michael Study Date: 12/16/2018 Height: 70 in : :[facility] Exam Location: [facility] Weight: 230 lb : : Gender: Female BSA: 2.2 m2 : :: 1955 Age: 63 yrs BP: 113/47 mmHg: :Reason For Study: AFIB : : Performed By: Hieu Davis : :Referring: JASMIN BENDER : + + Interpretation Summary The left ventricle is normal in size. The ejection fraction is estimated to be 55-60%. There has been no significant change in LVEF since the previous study. Diastolic parameters suggest a pseudonormalization pattern, consistent with probable elevated filling pressures. There has been no significant change since the previous study. The right ventricle is normal in size and function. No significant valvular pathology. The patient was in normal sinus rhythm during the exam. Procedure: A two-dimensional transthoracic echocardiogram with color flow and Doppler was performed. The study quality was technically adequate. Comparison is made with the echocardiogram of 11/24/18. The patient was in normal sinus rhythm during the exam. The patient had occasional PVCs during the exam. Left Ventricle: The left ventricle is normal in size. There is normal left ventricular wall thickness. There is no thrombus. The ejection fraction is estimated to be 55-60%. There has been no significant change since the previous study. There are no focal wall motion abnormalities. Diastolic parameters suggest a pseudonormalization pattern, consistent with probable elevated filling pressures. There has been no significant change since the previous study. Right Ventricle: The right ventricle is normal in size and function. Atria: The left atrium is moderately dilated. The left atrium has remained unchanged in size since the prior echo exam. The right atrium is mildly dilated. The interatrial septum is intact with no evidence for an atrial septal defect. Mitral Valve: There is mild mitral annular calcification. There is mild mitral regurgitation. Aortic Valve: The aortic valve is trileaflet. The aortic valve opens well. The aortic valve is mildly calcified. There is no aortic valve stenosis. There is trace aortic regurgitation. Tricuspid Valve: The tricuspid valve is normal. There is mild tricuspid regurgitation. The right ventricular systolic pressure is estimated to be at least 29 mmHg based on an estimated right atrial pressure of 3 mm Hg. Compared to the prior echo exam, there has been no change in TR severity. Pulmonic Valve: The pulmonic valve is not well seen, but is grossly normal. There is trace pulmonic regurgitation. Great Vessels: The aortic root is normal size. The ascending aorta is mildly enlarged. This is unchanged compared to the previous study. The pulmonary artery is normal size. The IVC is of normal diameter and collapses greater than 50% with a sniff. This suggests a low right atrial pressure of 3 mm Hg. Pericardium/ Pleura There is no pericardial effusion. There is no pleural effusion. MMode/2D Measurements & Calculations LVIDd: 5.4 cm LVOT diam: 2.1 cm LVIDs: 3.8 cm Ao root diam: 3.2 cm FS: 29.6 % Aortic Jxn: 2.8 cm EPSS: 0.55 cm asc Aorta Diam: 3.8 cm IVSd: 0.87 cm LVPWd: 0.83 cm LV romero. diameter/BSA (cm/m^2): 2.4 LV sys. diameter/BSA (cm/m^2): 1.7 LA dimension: 4.8 cm RA long axis: 6.3 cm LA A2 area: 27.6 cm2 RA area: 25.0 cm2 LA A4 area: 27.6 cm2 RA vol: 84.4 ml LA length (vol): 6.4 cm RA : 38.1 ml/m2 LA vol: 101.6 ml IVC diam: 1.8 cm LA vol index: 45.9 ml/m2 RVD1 (basal): 4.2 cm RVD2 (mid): 3.9 cm Doppler Measurements & Calculations Ao V2 max: 147.0 cm/sec LVOT Max Cay[place]: 111.1 cm/sec Ao V2 mean: 109.5 cm/sec LV V1 max P.9 mmHg Ao max P.6 mmHg LV V1 VTI: 26.2 cm Ao mean P.2 mmHg FLOYD(I,D): 3.1 cm2 Ao V2 VTI: 29.1 cm FLOYD(V,D): 2.6 cm2 sev ratio: 0.90 FLOYD indexed to BSA (cm^2/m^2): 1.4 MV E max cayetano: 105.6 cm/sec TR max cayetano: 255.3 cm/sec MV A max cayetano: 56.9 cm/sec TR max P.1 mmHg MV E/A: 1.9 PA V2 max: 66.9 cm/sec Med Peak E' Cayetano: 6.8 cm/sec PA V2 mean: 48.2 cm/sec E/E' med: 15.5 PA mean P.0 mmHg Lat Peak E' Cayetano: 7.1 cm/sec PA pr(Accel): 41.6 mmHg E/E' lat: 14.8 PA Accel Time: 0.08 sec E/e' average: 15.2 MV dec time: 0.17 sec SV(LVOT): 91.7 ml Reading Physician:01:24 PM
--- NOTE | 2018-12-15 14:29 | CM.DANOTE ---
DCP assessment: EMR reviewed: Patient is a 63 yr old Female admitted for SOB. Patients PCP is DR. García. Patient is I with all ADLs at baseline. Met with patient at the bedside and explained CM/RNs role. Spoke to hospitalist during AM rounds and stated she has a stress test today, and and echo and based on those will determine if patient will be d/c today or tomorrow. Patient lives with her who has stage 4 cancer. patient and live in a single level home. Patient stated her nephew was here from [place] to help with providing care to both her and her . patient nephew Mitchel is her DPOA phone number [phone]. Insurance 1st payer: [employer]/ [employer] 2nd: medicaid. Plan: anticipated plan is for patient to d/c home when medically stable. Patient d/c pending Echo results. Spoke with Hospitalist at 1400 and discussed patients progress. patient still hasn't had her Echo and so she will most likely D/C tomorrow. Rosa Elena Del Angel RN Discharge Planning/Care Management CM Discharge Assessment Start: 12/15/18 14:27 Freq: Status: Active Protocol: Document 12/15/18 14:27 HS (Rec: 12/15/18 14:28 [id number]) Discharge Planning Assessment Assigned Gold Letterer Rosa Elena Del Angel RN DPOA/Assigned Designee Name Mitchel kendrick Contact Information [phone] Advance Directives? No History Provided By Patient Has Patient been admitted in last 30 No days? Prior Living Arrangements House Household Members spouse,family Type of transporation used prior to Drives own vehicle admit Independent with ADL's Yes Is patient alert and oriented? Yes Caregiver for Another Yes: who has stage 4 cancer Discharge Plan Home Referrals Initiated None needed Whiteboard Updated in Patient Room with Yes name and ext. # of Gold Letterer Review Status In Process Next Review Type Continued Stay Review
[2018-12-15] MEDS: predniSONE 20 MG TABLET 40 MG PO (14:36)
[2018-12-15] MEDS: methIMAzole 5 MG TABLET 10 MG PO (14:36)
[2018-12-15] MEDS: ALPRAZolam 0.5 MG TABLET PO (15:16)
--- NOTE | 2018-12-15 16:19 | DI.NM.S_ITS ---
DATE OF SERVICE: 12/15/2018 PROCEDURE: Pharmacological perfusion study. INDICATIONS: Shortness of breath with underlying chronic atrial fibrillation, obesity. RADIOPHARMACEUTICAL: 25.5 mCi technetium-99m Myoview IV was injected at stress. This is a stress study only. CARDIAC STRESS: Patient underwent IV Lexiscan perfusion study under the supervision of an attending staff using standard IV Lexiscan protocol. Baseline rhythm was atrial fibrillation with underlying right bundle branch block and left anterior fascicular as well as fast ventricular rate up to 123. During stress, there were no new significant ischemic changes. Patient remained in atrial fibrillation with fast ventricular rate as well as developed intermittent PVCs without any ventricular tachycardia. She remained hemodynamically stable. RAW DATA: Significant breast shadow was seen. GATED STUDY: During stress, LV ejection fraction 62%, difficult to comment upon wall motion abnormalities. Lung/heart ratio is 0.31, which is within normal limits. Stress LV end-diastolic 82 mL. MYOCARDIAL PERFUSION SCAN: Stress supine images revealed small-sized mildly decreased perfusion of distal anterior wall. During prone images, that defect got resolved. However, patient developed new inferior apical defect which was not seen during stress supine. Most likely, we are dealing with shifting breast tissue attenuation artifact. CONCLUSION: I will call this study likely a normal myocardial perfusion study with evidence of breast tissue attenuation artifact, especially shifting breast tissue attenuation artifact. As far as perfusion scan is concerned, this is a low-risk myocardial perfusion scan. Patient has underlying chronic atrial fibrillation with right bundle branch block and left anterior fascicular block. Her ventricular rate was 123 at rest. She will need good control of atrial fibrillation. Discussed the findings with the hospitalist staff, Dr. Chung. Miladis Bond - ZENA/saima/ doc#: [id number]/job#: [id number] dd: 12/15/2018 13:21:00 dt: 12/15/2018 16:01:00 DICTATING MD/COPIES TO: Deborah Lopez MD COPIES MNE: [id number]
[2018-12-15] MEDS: LISINOPRIL 5 MG TABLET 2.5 MG PO (17:03)
[2018-12-16 00:27] VITALS: BP 131/70; PULSE 134
[2018-12-16] MEDS: METOPROLOL ER 50 MG TABLET 150 MG PO (00:27)
[2018-12-16 00:30] VITALS: O2SAT 94
[2018-12-16 05:00] VITALS: BP 107/49; PULSE 88; RESP 18; TEMP 36.3; O2SAT 97
--- NOTE | 2018-12-16 07:40 | PM.DS.1 ---
History of Present Illness History of Present Illness Date Patient Seen: 12/16/18 Time Patient Seen: 07:40 Chief complaint: SOB Narrative: As per FAHEEM Gr: Patient is a 63-year-old female with PMH of HTN, chronic atrial fibrillation (s/p successful cardioversion 05/2015), h/o VTACH (controlled w/ amiodarone therapy), chronic anticoagulation w/ apixaban, dual-lead PPM implant (11/20/2018, [facility]), right-sided heart failure, 50 PYH of tobacco dependence (quit 04/2018), marijuana use, obesity, depression, anxiety, Patient presented to the ED per direction of her PCP (Dr. Arnold). Presents out of concern for exertional dyspnea. Symptoms present for one week. No associated chest pain, dizziness, lightheadedness, or syncopal events. Denies peripheral edema, orthopnea, and PND. No recent fever or chills. Patient reports being able to walk 50 ft prior to needing to rest. Notes recurrent bring fairly quickly. Given patient's description, it is not entirely clear if she is short of breath or profoundly weak, ie. exertional dyspnea vs. exercise / activity intolerance. Patient is known to have underlying atrial fibrillation, which according to the patient was diagnosed 4 years ago. At that time also notes episodes of ventricular tachycardia. In 2015 she underwent successful cardioversion. Reports adequate heart rate control with amiodarone and metoprolol until 1-2 months ago. At that time she has experienced multiple syncopal events. 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 Consequently, patient underwent dual lead ppm implant on 11/20/2018. Prior to ppm implant she was anticoagulated with warfarin. Post procedure, warfarin was replaced with apixaban. She was also taken off amiodarone due to concern for amiodarone induced thyroid dysfunction, specifically thyrotoxicosis. Discharge Providers Provider Date of admission: 12/14/18 16:45 Discharge Date: 12/16/18 Primary care physician: Giulia García DO Discharge provider: Jignesh Chung DO Summary Hospital Course Discharge Diagnosis: 1. Exertional Dyspnea, acute present on admission, active - 2. Atrial Fibrillation, chronic, present on admission, active - 3. Hyperthyroidism, acute, present on admission, active - 4. Sick sinus syndrome, chronic condition, present on admission, active 5. Diastolic CHFpEF 55-60% (echo 07/28/2015), chronic condition, present on admission, stable 6. Depression and Anxiety, chronic condition, present on admission, stable Hospital Course: Ms Herson Frost is a 63-year-old female with PMH of HTN, chronic atrial fibrillation (s/p successful cardioversion 05/2015), h/o VTACH (controlled w/ amiodarone therapy), chronic anticoagulation w/ apixaban, dual-lead PPM implant (11/20/2018, [facility]), right-sided heart failure, 50 PYH of tobacco dependence (quit 04/2018), marijuana use, obesity, depression, anxiety who was admitted for dyspnea on exertion. This is likely secondary to AFib with RVR which appears to be secondary to hyperthyroidism at this time. 1. Exertional Dyspnea, acute present on admission, active, improved -likely secondary to AFib which is secondary to hyperthyroidism. Differential includes possible stress induced cardiomyopathy (pending TTE but less likely). Stress testing performed was classified as low risk. Her dyspnea improved after initiation of methimazole and prednisone for hyperthyroidism rather quickly, but she was also in sinus rhythm on the day of discharge. - Trop WNL - CXR negative for acute cardiopulmonary findings - CT CHEST negative for PE -stress test was classified as low risk today -TTE this admission was unchanged from prior study with EF of 55-60%. -thyroid studies as noted below 2. Atrial Fibrillation, chronic, present on admission, active -classified as persistent as patient was previously on amiodarone however this was discontinued. She remained in AFib with rates into the 130s. This worsening is likely secondary to hyperthyroidism. After initiation of methimazole and prednisone she had improvement in her symptoms and was intermittently in sinus rhythm on the day of discharge. - Continue metoprolol and apixaban - treatment of hyperthyroidism as noted below. - ventricular rate, variable 90-130s, improved with treatments 3. 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 Free t4 and t3 elevated. Could be secondary to amiodarone, which would be a type II AIH (amio induced hyperthyroidism) in this clinical picture which is typically treated with steroids. This is not for certain, however, and has pending workup for hyperthyroid including thyroid Ab panel and TSH receptor Ab and so she also requires methimazole therapy. - started on methimazole today 12/15/18. - Suspected to be amiodarone induced, amiodarone was stopped 11/24/2018 (TSH 0.005, FT4 4.23, FT3 256 on d/c from [facility], 11/24) although this is not confirmed. - Thyroid U/S showing L sided nodule and possible enlarged parathyroid gland, however no abnormal calcium levels. Can be evaluated as an outpatient. - Patient has a pending outpatient referral to endocrinology at [facility] and I made her the soonest available appointment on February 05, I called and discussed the case with the gluing machine operator electronic that will see her in clinic. I have started her on methimazole 10 mg daily and I will give her a 5 week taper of prednisone starting with 40 mg today. She will take 40 mg x2 weeks, then 30 mg for 1 week, 20 mg for 1 week, and 10 mg for the final week. - thyroid antibody panel currently pending, sent TSH receptor Ab today. 4. Sick sinus syndrome, chronic condition, present on admission, active - S/P dual-lead PPM ([facility]) implant on 11/20/2018 - Pending outpatient cardiology appointment on Mar 05, 2019 @ 3 pm w/ Dr. Tamayo 5. Diastolic HFpEF 55-60% (echo 07/28/2015), chronic condition, present on admission, stable Echo, 07/28/2015: LV normal size and systolic fx, EF 55-60%. Concentric LVH. No obvious focal wall motion (noted to have poor endcoardial definition). Grade II diastolic dysfunction. Normal RV size and function. No significant valvular abnormalities. Mild to moderate dilatation of the ascending aorta (diameter 4.1 cm). - No active s/s of volume excess - Continue [employer] regimen of furosemide 20 mg QD - Monitor and replete electrolyte deficiencies - repeat TTE unchanged from prior. 6. Depression and Anxiety, chronic condition, present on admission, stable - No harmful ideation towards self or others - [employer] on fluoxetine 20 mg daily, bupropion 200 mg daily, and alprazolam 0.5 mg bid prn, resume bupropion and alprazolam Exam Vital Signs (past 8 hours): - 12/16/18 00:27 12/16/18 00:30 12/16/18 05:00 Temperature 97.3 F L Pulse Rate 134 H 88 Respiratory Rate 18 Blood Pressure 131/70 107/49 L Pulse Oximetry 94 97 Oxygen Delivery Method Room Air Oxygen Flow Rate 0 Narrative Exam Narrative: GENERAL APPEARANCE: Well developed, well nourished, in no acute distress. SKIN: Inspection of the skin reveals no rashes, ulcerations or petechiae. HEENT: The sclerae were anicteric and conjunctivae were pink and moist. Extraocular movements were intact and pupils were equal, round with normal accommodation. External inspection of the ears and nose showed no scars, lesions, or masses. Lips, teeth, and gums showed normal mucosa. The oral mucosa, hard and soft palate, tongue and posterior pharynx were unremarkable. NECK: Supple and symmetric. There was no thyroid enlargement, and no tenderness. There was a left sided thyroid nodule present. CHEST: Normal AP diameter and normal contour without any kyphoscoliosis. LUNGS: Auscultation of the lungs revealed no wheezes, rhonchi, or rales. CARDIOVASCULAR: Tachycardic, irregularly irregular. Peripheral pulses were 2+ and symmetric. ABDOMEN: Soft and nontender with normal bowel sounds. No ascites was noted. MUSCULOSKELETAL: There was no tenderness or effusions noted. Muscle strength and tone were normal. EXTREMITIES: No cyanosis, clubbing or edema. NEUROLOGIC: Alert and oriented x 3. Normal affect. Gait was normal. Strength is +5/5 in the Upper Extremities and Lower Extremities Bilaterally. Sensation to touch was normal. Mild tremor noted on exam in upper extremities. Objective Labs Result Diagrams: 12/14/18 12:07 12/14/18 12:07 Discharge Plan Discharge Plan Patient Disposition: Home Discharge comment: You were admitted to the hospital for shortness of breath. You had a stress test that was normal. Your shortness of breath is likely related to the atrial fibrillation which is worsened by your hyperthyroidism. Your started on medications for hyperthyroidism, which may be related to amiodarone. You were prescribed a prolonged steroid taper, and methimazole upon discharge. You should see your primary care doctor, with thyroid function testing to be done prior as we discussed. Discharge Med Rec/Prescriptions Prescriptions: New prednisone 10 mg tablet See Rx Instructions .ROUTE .COMPLEX 35 Days Qty: 90 RF: 0 methimazole 10 mg tablet 10 mg PO DAILY 60 Days Qty: 30 RF: 1 methimazole 10 mg tablet 10 mg PO DAILY 60 Days Qty: 30 RF: 1 Continued lisinopril 2.5 mg tablet 2.5 mg PO QPM RF: 0 bupropion HCl 200 mg tablet sustained-release 12 hr 200 mg PO DAILY Qty: 30 RF: 6 metoprolol succinate 100 mg tablet extended release 24 hr 150 mg PO BID RF: 0 Eliquis 5 mg tablet 5 mg PO BID RF: 0 alprazolam [Xanax] 0.5 mg tablet 0.5 mg PO BID PRN (Reason: Anxiety) RF: 0 furosemide [Lasix] 20 mg tablet 20 mg PO DAILY RF: 0 fluoxetine 20 mg capsule 20 mg PO DAILY RF: 0 Follow up/Referrals: Giulia García DO [Primary Care Provider] - Provider Discharge Instructions Diet: Diet as Tolerated Activity: As tolerated Visit Report/Discharge Packet Instructions: DI for Atrial Fibrillation, DI for Hyperthyroidism, Prednisone, Methimazole Visit Report Forms: Patient Portal/API, Stroke Signs & Symptoms Discharge Data Primary Care Provider: Giulia García Attending Provider: Madina Green Admit Date/Time: 12/14/18 16:45 Discharges patient from system. Discharge Date/Time: 12/16/18 13:39
[2018-12-16 08:29] VITALS: BP 104/58; PULSE 73; RESP 19; TEMP 36; O2SAT 96
[2018-12-16 08:50] VITALS: O2SAT 96
[2018-12-16] MEDS: methIMAzole 5 MG TABLET 10 MG PO (08:54)
[2018-12-16] MEDS: predniSONE 20 MG TABLET 40 MG PO (08:55)
[2018-12-16] MEDS: APIXABAN 5 MG TABLET PO (08:57)
[2018-12-16] MEDS: buPROPion SR 100 MG TAB 200 MG PO (08:57)
[2018-12-16] MEDS: FUROSEMIDE 20 MG TABLET PO (08:57)
[2018-12-16] MEDS: SODIUM CHLORIDE 0.9% FLUSH 10 ML IV (08:58)
[2018-12-16 10:45] VITALS: O2SAT 96
[2018-12-19 11:56] LABS: Anti Thyroglobulin Antibody < 1 IU/mL (< 2); Thyroid Peroxidase Antibodies < 1 IU/mL (< 9)
== END 2018-12-16 13:39 | disposition home or self-care (01) ==
LOC: ED 12:07 → AC 16:46
PROVIDERS: Internal Medicine; Nurse Practitioner Gerontology; Admitting Provider Internal Medicine; Emergency Provider Nurse Practitioner Family; PCP Family Medicine; Visit Provider Internal Medicine
DX: R06.02 Shortness of breath (principal); Z87.891 Personal history of nicotine dependence; Z95.0 Presence of cardiac pacemaker; I10 Essential (primary) hypertension; I49.5 Sick sinus syndrome; I50.32 Chronic diastolic (congestive) heart failure; F32.9 Major depressive disorder, single episode, unspecified; F41.9 Anxiety disorder, unspecified; I48.20 Chronic atrial fibrillation, unspecified; E03.9 Hypothyroidism, unspecified
CPT/HCPCS: 36415; 71046; 71275; 76536; 78451; 80053; 82550; 83519; 83735; 83880; 84439; 84443; 84481; 84484; 85025; 85610; 85730; 86376; 86800; 93005; 93016; 93017; 93018; 93306; 94760; 96374; 99283; 99285; G0378; A9502; J2785; Q9967

== ENCOUNTER → 2022-06-12 10:50 | Outpatient (CLI) | payer MEDICARE, MEDICAID, SELFPAY ==
[2018-12-14 18:22] VITALS: BMI 33.5
[2022-06-12 11:29] LABS: Add Manual Diff / Slide Review NO; Basophils Absolute Auto 0 /uL (0-100); Basophils Percent Auto 0.6 % (0-2); Eosinophils Absolute Auto 100 /uL (0-450); Eosinophils Percent Auto 1.8 % (2-4); Hematocrit 42.8 % (36-46); Hemoglobin 14.3 g/dL (12.0-16.0); Lymphocytes Absolute Auto 2200 /uL (1100-4500); Lymphocytes Percent Auto 35.5 % (25-40); Mean Corpuscular HGB Conc 33.4 % (30-36); Mean Corpuscular Hemoglobin 30.4 PG (26-34); Mean Corpuscular Volume 91.1 fL (80-100); Monocytes Absolute Auto 500 /uL (0-900); Monocytes Percent Auto 8.1 % (3-14); Neutrophils Absolute Auto 3400 /uL (1500-7000); Platelet Count 234 X10^3/uL (150-400); Red Cell Distribution Width 13.3 % (11.6-14.8); White Blood Cell Count 6.3 X10^3/uL (4.5-11.0)
[2022-06-12 12:05] LABS: Alanine Aminotransferase 20 IU/L (<35); Albumin 4.2 g/dL (3.5-5.0); Albumin Globulin Ratio 1.3 (1.0-2.8); Alkaline Phosphatase 68 U/L (38-126); Aspartate Aminotransferase 23 IU/L (14-36); BUN Creatinine Ratio 26.3 (6-22); Bilirubin Total 0.5 mg/dL (0.2-1.3); Blood Urea Nitrogen 20 mg/dL (7-17); Calcium 9.2 mg/dL (8.4-10.2); Carbon Dioxide 30 mmol/L (22-32); Chloride 102 mmol/L (98-107); Cholesterol 143 mg/dL (140-199); Estimated Glomerular Filt Rate > 60 mL/min (>60); Globulin 3.3 g/dL (1.7-4.1); Glucose 110 mg/dL (80-110); HDL Cholesterol 38 mg/dL (40-60); HEMOLYSIS < 15 (0-50); LDL Cholesterol Calculated 87 mg/dL (<100); Potassium 4.6 mmol/L (3.4-5.1); Sodium 138 mmol/L (137-145); Total Protein 7.5 g/dL (6.3-8.2); Triglycerides 89 mg/dL (35-150)
[2022-06-12 12:30] LABS: Thyroid Stimulating Hormone 1.17 uIU/mL (0.47-4.68)
== END ==
PROVIDERS: PCP Family Medicine; Referring Provider Family Medicine; Visit Provider Family Medicine
DX: Z00.00 Encounter for general adult medical examination without abnormal findings (principal); E05.90 Thyrotoxicosis, unspecified without thyrotoxic crisis or storm; R94.6 Abnormal results of thyroid function studies; I48.19 Other persistent atrial fibrillation; R60.9 Edema, unspecified; E78.5 Hyperlipidemia, unspecified
CPT/HCPCS: 36415; 80053; 80061; 84443; 85025